=== PATIENT | female | born 1975 | race Caucasian/White ===

== ENCOUNTER 2023-02-09 04:59 | Emergency (ER) | payer SELFPAY ==
[2023-02-09 05:06] VITALS: BP 131/81; PULSE 69; RESP 16; TEMP 36.7; O2SAT 99; BMI 15.3
--- NOTE | 2023-02-09 05:14 | XR_ITS ---
The [address] [address] Patient Name: JUDE HUMPHREY MRN: [id number] date: 1975 Sex: F Assigned Patient Location: ER Current Patient Location: ED.MAIN Accession/Order Number: [id number] Exam Date: 02/09/2023 05:25 Report Date: 02/09/2023 05:57 At the request of: TENISHA WALLS Procedure: XR scapula LT EXAM: XR scapula LT HISTORY: left scapular pain, fall COMPARISON: None. TECHNIQUE: 2 views of the left scapula were obtained. FINDINGS: No acute fracture or dislocation is seen. The left humeral head is well-seated on the glenoid. The acromioclavicular and coracoclavicular distances are preserved. The imaged lungs are clear. XR/XR scapula LT IMPRESSION: 1. No acute fracture or dislocation of the left scapula is seen. If there is persistent concern, further evaluation with CT is recommended. Electronically authenticated by: Doug FORMAN Date: 02/09/2023 05:57
--- NOTE | 2023-02-09 05:15 | ED.GENADUL1 ---
HPI - General Adult General Chief complaint: Extremity Problem, Nontraumatic Stated complaint: FALL RIB PAIN Time Seen by Provider: 02/09/23 05:04 Source: patient Mode of arrival: walk-in Limitations: no limitations History of Present Illness HPI narrative: Patient fell yesterday and stated that she felt pain in the left scapular region and felt a pop . Patient works 3rd shift, went to work tonight and the pain worsened so she came to the ED at 5am to be evaluated. No meds taken since the fall for the pain. She told me that she also fell about 2 weeks ago and injured the same area. She did not seek care at that time and did not take anything for the pain, which lasted for a couple of days. No head injury, LOC, pain in the neck or the back. Related Data Home Medications Medication Instructions Recorded Confirmed estradiol 0.5 mg tablet mg 02/09/23 hydroxyzine HCl 25 mg tablet mg 02/09/23 quetiapine 50 mg tablet mg 02/09/23 Previous Rx's Medication Instructions Recorded ketorolac 10 mg tablet 10 mg PO Q8H PRN pain #14 tabs 02/09/23 Allergies Allergy/AdvReac Type Severity Reaction Status Date / Time naproxen Allergy Verified 02/09/23 05:10 [facility] Social History Smoking status: Current every day smoker Exam Narrative Exam Narrative: Nurses note and vital signs reviewed and patient is not hypoxic. afebrile General: The patient appears well and in no apparent distress. Patient is resting comfortably on cart. GCS = 15. Skin: Warm, dry, no pallor noted. Head: Normocephalic, atraumatic Neck: Supple, trachea mid-line. Full ROM and no cervical spinal tenderness. Cardiovascular: Normal peripheral perfusion Respiratory: Patient is in no distress, no accessory muscle use, lungs are clear to auscultation, no wheezing, rales or rhonchi Back: No thoracic midline vertebral tenderness to palpation. Tenderness along the left scapula. 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 Psychiatric: Cooperative Constitutional Vital Signs, click to edit/add: Last Vital Signs Temp 98.1 F 02/09/23 05:06 Pulse 69 02/09/23 05:06 Resp 16 02/09/23 05:06 BP 131/81 11/26/23 05:06 Pulse Ox 99 02/09/23 05:06 O2 Del Method Room Air 02/09/23 05:06 Course Vital Signs Vital signs: Vital Signs Temperature 98.1 F 02/09/23 05:06 Pulse Rate 69 02/09/23 05:06 Respiratory Rate 16 02/09/23 05:06 Blood Pressure 131/81 02/09/23 05:06 Pulse Oximetry 99 02/09/23 05:06 Oxygen Delivery Method Room Air 02/09/23 05:06 Temperature 98.1 F 02/09/23 05:06 Pulse Rate 69 02/09/23 05:06 Respiratory Rate 16 02/09/23 05:06 Blood Pressure 131/81 02/09/23 05:06 Pulse Oximetry 99 02/09/23 05:06 Oxygen Delivery Method Room Air 02/09/23 05:06 Medical Decision Making MDM Narrative Medical decision making narrative: The patient was given Motrin for pain and xrays of the left scapula were obtained. No acute fracture was identified. Patient was informed of results and discharged home with prescription for 5 days of Toradol. PCP follow up recommended. Imaging Data xr scapula: Radiologist's impression: Patient Name: JUDE HUMPHREY MRN: [id number] date: 1975 Sex: F Assigned Patient Location: ER Current Patient Location: ED.MAIN Accession/Order Number: [id number] Exam Date: 02/09/2023 05:25 Report Date: 02/09/2023 05:57 At the request of: TENISHA WALLS Procedure: XR scapula LT EXAM: XR scapula LT HISTORY: left scapular pain, fall COMPARISON: None. TECHNIQUE: 2 views of the left scapula were obtained. FINDINGS: No acute fracture or dislocation is seen. The left humeral head is well-seated on the glenoid. The acromioclavicular and coracoclavicular distances are preserved. The imaged lungs are clear. IMPRESSION: 1. No acute fracture or dislocation of the left scapula is seen. If there is persistent concern, further evaluation with CT is recommended. Electronically authenticated by: Doug FORMAN Date: 02/09/2023 05:57 Discharge Plan Discharge Chief Complaint: Extremity Problem, Nontraumatic Clinical Impression: Pain of left scapula, Muscle strain Patient Disposition: Home, Self-Care Time of Disposition Decision: 05:20 Prescriptions / Home Meds: New ketorolac 10 mg tablet 10 mg PO Q8H PRN (Reason: pain) Qty: 14 0RF No Action hydroxyzine HCl 25 mg tablet estradiol 0.5 mg tablet quetiapine 50 mg tablet Instructions: Back Pain (ED) Stand Alone Forms: Portal Instructions Referrals: TERI HERNANDEZ [Primary Care Provider] - 1 week
[2023-02-09] MEDS: IBUPROFEN 600 MG TABLET PO (05:46)
[2023-02-09 06:51] VITALS: BP 116/59; PULSE 63; RESP 18; O2SAT 98
== END 2023-02-09 06:52 | disposition home or self-care (01) ==
PROVIDERS: Emergency Provider Emergency Medicine; PCP Nurse Practitioner Family
DX: S46.912A Strain of unspecified muscle, fascia and tendon at shoulder and upper arm level, left arm, initial encounter (principal); M25.512 Pain in left shoulder; X50.9XXA Other and unspecified overexertion or strenuous movements or postures, initial encounter; Z79.899 Other long term (current) drug therapy; F17.210 Nicotine dependence, cigarettes, uncomplicated
CPT/HCPCS: 73010; 99283

== ENCOUNTER 2023-10-15 11:16 | Outpatient (REF) | payer OTHER, SELFPAY ==
--- OUTSIDE RECORDS SUMMARY | 2023-10-15 11:23 | XMS_ITS | CCD ---
Author Organization [facility] Care Team Providers Care Wood Getter Name Role Phone TERI BELL Primary Care Unavailable ERIC, DR NIKHIL Isaac Admitting Unavailable ERIC, DR NIKHIL Isaac Attending Unavailable ERIC, DR NIKHIL Isaac Consulting Unavailable Shena Dao Consulting Unavailable HERMELINDA, DR SHARMA Admitting Unavailable HERMELINDA, DR SHARMA Attending Unavailable ARABELLA, TERI Primary Care Unavailable HERMELINDA, DR SHARMA Consulting Unavailable HERMELINDA, DR SHARMA Admitting Unavailable HERMELINDA, DR SHARMA Attending Unavailable ARABELLA, TERI Primary Care Unavailable SAADIA, DR VALORIE Trejo Consulting Unavailable HERMELINDA, DR SHARMA Consulting Unavailable ARABELLA, TERI Admitting Unavailable ARABELLA, TERI Attending Unavailable ARABELLA, TERI Primary Care Unavailable ARABELLA, TERI Consulting Unavailable ARABELLA, TERI Admitting Unavailable ARABELLA, TERI Attending Unavailable ARABELLA, TERI Primary Care Unavailable ARABELLA, TERI Admitting Unavailable ARABELLA, TERI Attending Unavailable ARABELLA, TERI Primary Care Unavailable ARABELLA, TERI Primary Care Unavailable ARABELLA, TERI Admitting Unavailable ARABELLA, TERI Attending Unavailable MICHAEL FORMAN Consulting Unavailable VIPUL RAMESH Consulting Unavailable ARABELLA, TERI Primary Care Unavailable VIPUL RAMESH Admitting Unavailable VIPUL RAMESH Attending Unavailable SANDRO, DR SCHOFIELD Consulting Unavailable Eduardo Mchugh Consulting Unavailable Ahsan HANSEN Attending Unavailable Ahsan HANSEN Attending Unavailable Allergies Allergy Classification Reported Allergen(s) Allergy Type Date of Onset Reaction(s) Facility (2 sources) Naproxen; Translations: [naproxen] Drug Allergy 05-05-2015 [facility] Repository (2 sources) Naproxen; Translations: [Aleve] Drug Allergy 05-26-2015 [facility] Rep[facility] Problems Active Problems Problem Classification Problem Date Documented Da te Episodic/Chronic Other aftercare (1 source) Other penitentiary (current) drug therapy; Translations: [OTH USP CURRENT DRUG THERAPY] Onset: 12-11-2020 Episodic Other non-traumatic joint disorders (5 sources) Pain in right shoulder; Translations: [PAIN IN RIGHT SHOULDER] Onset: 06-13-2020 Episodic Other screening for suspected conditions (not mental disorders or infectious disease) (8 sources) Encounter for screening mammogram for malignant neoplasm of breast; Translations: [Encounter for screening for malignant neoplasm of cervix] Onset: 08-01-2020 Episodic Residual codes; unclassified (1 source) Family history of malignant neoplasm of digestive organs; Translations: [FAM HX MALIG NEOPLASM DIGESTIV ORGN] Onset: 12-27-2020 Episodic Substance-related disorders (1 source) Nicotine dependence, cigarettes, uncomplicated; Translations: [NICOTINE DEPEND CIGARETTES UNCOMP] Onset: 01-15-2021 Chronic Unclassified (2 sources) COUGH, UNSPECIFIED; Translations: [COUGH, UNSPECIFIED] Onset: 01-15-2021 Viral infection (1 source) COVID-19; Translations: [COVID-19] Onset: 01-15-2021 Past or Other Problems Problem Classification Problem Date Documented Date Episodic/Chronic E Codes: Fall (1 source) Fall (on) (from) unspecified stairs and steps, initial encounter; Translations: [FALL ON FROM UNS STAIRS STEPS INIT] Onset: 04-25-2020 Episodic Immunizations and screening for infectious disease (1 source) Encounter for screening for human papillomavirus (HPV); Translations: [ENC SCREENING HUMAN PAPILLOMAVIRUS] Onset: 08-08-2020 Episodic Other connective tissue disease (1 source) Other muscle spasm; Translations: [OTHER MUSCLE SPASM] Onset: 04-25-2020 Episodic Residual codes; unclassified (1 source) Acquired absence of both cervix and uterus; Translations: [ACQUIRED ABSENCE BOTH CERVIX AND UTERUS] Onset: 04-25-2020 Episodic Spondylosis; intervertebral disc disorders; other back problems (4 sources) Low back pain; Translations: [LOW BACK PAIN] Onset: 05-24-2020 Episodic Sprains and strains (1 source) Strain of muscle, fascia and tendon of lower back, initial encounter; Translations: [STRAIN MUSC FASC TENDON LW BACK INT] Onset: 04-25-2020 Episodic Unclassified (1 source) COUGH, UNSPECIFIED; Translations: [COUGH, UNSPECIFIED] Onset: 01-11-2021 Results Test Name Value Interpretation Reference Range Facility Registrationon 07-03-2023 Registration [id number]. [id number] Normal [facility] Covid-19 PCR (CVDTBH)on 12-16 SARS-CoV-2 (COVID-19) RNA ZAYRA+probe Ql (Unsp spec) Detected Critically abnormal NOT DETECTED [facility] Comment on above: Performed By: #### M ISC #### [facility] [address] [address] Mitesh Wade XR CHEST 1 Von 01-11-2021 XR CHEST 1 V ONE-VIEW CHEST RADIOGRAPH, 01/11/2021 8:34 PM EDT COMPARISON: Chest, 10/01/2016 CLINICAL HISTORY: COUGH, congestion and headache for 3 days. FINDINGS: No acute cardiopulmonary disease. No pulmonary edema, pneumothorax, or pleural effusion. Normal heart size. No acute osseous abnormality. IMPRESSION: No acute abnormality identified. Electronically authenticated by: Shena DAO Date: 2021-01-11 20:58 Normal [facility] MG MAMM SCREEN 3D MEGHANN CADon 12-22-2020 MG MAMM SCREEN 3D MEGHANN CAD Patient: JUDE HUMPHREY Exam Date: 12/22/2020 : 1975 Gender:F Ordering : DR EDITH SHEN . Admission #: [id number] Family : TERI HERNANDEZ [facility] Order #: [id number] CLICK HERE TO VIEW EXAM RADIOLOGY REPORT PROCEDURE: MAMMOGRAM SCREENING 3D BILATERAL CAD COMPARISON: MG MAMM SCREEN MEGHANN W CAD, 07/22/2018. MG MAMM SCREEN MEGHANN W CAD, 09/23/2019. INDICATIONS: Screening mammography Calculator Name NCI Breast Cancer Risk Assessment Tool 5 Year Breast Cancer Risk 0.50% Lifetime Breast Cancer Risk 6.50% Personal Breast Cancer No Personal Ovarian Cancer No Treatments None Family Cancers Father with larynx cancer at age 67; Grandmother-paternal with colon cancer at age 60. LOCATION: [facility] BREAST COMPOSITION: Extremely dense, which lowers the sensitivity of mammography. FINDINGS: DIAGNOSTIC CATEGORY 1--NEGATIVE NO CHANGE FROM COMPARISON ASSESSMENT. Scattered benign-appearing calcifications are present. Scattered benign-appearing lymph nodes are present. RIGHT BREAST: No significant suspicious finding. LEFT BREAST: No significant suspicious finding. RECOMMENDATIONS: ROUTINE MAMMOGRAM AND CLINICAL EVALUATION IN 12 MONTHS. PLEASE NOTE: A NORMAL MAMMOGRAM DOES NOT EXCLUDE THE POSSIBILITY OF BREAST CANCER. A CLINICALLY SUSPICIOUS PALPABLE LUMP SHOULD BE BIOPSIED. Dictated by: Valorie Blum MD on 12/25/2020 at 09:38 Approved by: Valorie Blum MD on 12/25/2020 at 09:42 Normal [facility] XR SHOULDER RT 2V or >on XR SHOULDER RT 2V or > EXAM: XR SHOULDER RT 2V or > HISTORY: The patient is a 45-year-old female with right shoulder pain after throwing injury. COMPARISON: 07/08/2018. FINDINGS: There is an ovoid calcification measuring 7 mm in length anterior to the proximal humeral diaphysis. This may represent a calcification within the biceps tendon sheath. This does not have the appearance of an acute fracture. Otherwise, the right shoulder is radiographically negative with no evidence of fracture, dislocation, or other sites of calcific tendonitis. The glenohumeral joint is maintained. The acromioclavicular joint is maintained. The subacromial space is maintained. IMPRESSION: Soft tissue calcification, perhaps within the biceps tendon sheath. Electronically authenticated by: EDUARDO MCHUGH Date: 2020-12-09 18:18 Normal [facility] PAP ACOG PANEL 2: 30 to 65on 08-07-2020 . . Normal [facility] Comment on above: Result Comment: Perf ormed at: WB Performed By: #### [id number] #### [facility] [address] [place] [address] Mitesh Wade Age Gdln ACOG Testing 30-65 Normal [facility] Comment on above: Performed By: #### [id number] #### [facility] [address] [place], [place] [address] Mitesh Wade DIAGNOSIS: Comment Normal [facility] Comment on above: Result Comment: NEGA TIVE FOR INTRAEPITHELIAL LESION OR MALIGNANCY. Performed at: WB Performed By: #### [id number] #### [facility] [address] [place] [address] Mitesh Wade HPV Aptima Positive Abnormal Negative [facility] Comment on above: Result Comment: This nucleic acid amplification test detects fourteen high-risk HPV types (16,18,31,33,35,39,45,51,52,56,58,59,66,68) without differentiation. Performed at: =G Performed By: #### [id number] #### [facility] [address] [place] [address] Mitesheduardo Wade HPV Genotype 16 Negative Normal Negative [facility] Comment on above: Result Comment: Perf ormed at: =G Performed By: #### [id number] #### [facility] [address] [place] [address] Mitesheduardo Wade HPV Genotype 18,45 Negative Normal Negative [facility] Comment on above: Result Comment: Perf ormed at: =G Performed By: #### 4 [id number] #### [facility] [address] [place] [address] Mitesh Sheri Methodology: Comment Normal [facility] Comment on above: Result Comment: This liquid based ThinPrep(R) pap test was screened with the use of an image guided system. Performed at: WB Performed By: #### 4 [id number] #### [facility] [address] [place] [address] Mitesheduardo Wade Note: Comment Normal [facility] Comment on above: Result Comment: The Pap smear is a screening test designed to aid in the detection of premalignant and malignant conditions of the uterine cervix. It is not a diagnostic procedure and should not be used as the sole means of detecting cervical cancer. Both false-positive and false-negative reports do occur. . Performed at: WB Performed By: #### [id number] #### [facility] [address] [place] [address] Mitesh Sheri Performed by: Comment Normal [facility] Comment on above: Result Comment: Bk Lopez Food Counter Worker (ASCP) Performed at: WB Performed By: #### [id number] #### [facility] [address] [place] [address] Mitesh Sheri Specimen adequacy: Comment Normal [facility] Comment on above: Result Comment: Sati sfactory for evaluation. No endocervical component is identified. Performed at: WB Performed By: #### 4 [id number] #### [facility] [address] [place], [place] [id number] Mitesheduardo Wade INSULINon 05-02-2020 Insulin 3.8 uIU/mL Normal 2.6-24.9 [facility] Comment on above: Performed By: #### M ISC #### [facility] [address] [place] [address] Mitesheduardo Wade CBC AUTO DIFFon 05-01-2020 BASO # 0.0 103/ul Normal 0.0-0.1 [facility] Comment on above: Performed By: #### C BC #### [facility] [address] [place], [place] [id number] Mitesh Wade Basophils/100 WBC (Bld) 0.3 % Normal 0.2-2.0 [facility] Comment on above: Performed By: #### C BC #### [facility] [address] [place] [address] Mitesheduardo Wade EO # 0.1 103/ul Normal 0.0-0.7 [facility] Comment on above: Performed By: #### C BC #### [facility] [address] [place] [address] Mitesh Wade Eosinophils/100 WBC (Bld) 1.3 % Normal 0.9-7.0 [facility] Comment on above: Performed By: #### C BC #### [facility] [address] [place], [place] [id number] Mitesh Wade Erythrocyte distribution width (RBC) [Ratio] 12.9 % Normal 11.0-15.0 [facility] Comment on above: Performed By: #### C BC #### [facility] [address] [place], [place] [id number] Mitesh Sheri Hematocrit (Bld) [Volume fraction] 39.6 % Normal 36.0-48.0 [facility] Comment on above: Performed By: #### C BC #### [facility] [address] [place] [address] Mitesh Sheri Hemoglobin (Bld) [Mass/Vol] 13.2 g/dL Normal 12.0-16.0 [facility] Comment on above: Performed By: #### C BC #### [facility] [address] [id number] Mitesh Sheri IG # 0.02 10e3/ul Normal 0.00-0.03 [facility] Comment on above: Performed By: #### C BC #### [facility] [address] [place], [place] [id number] Mitesh Sheri IG % 0.2 % Normal 0.0-0.5 [facility] Comment on above: Performed By: #### C BC #### [facility] [address] [place] [address] Mitesh Sheri LYMPH # 3.2 103/ul Normal 1.2-3.8 [facility] Comment on above: Performed By: #### C BC #### [facility] [address] [place] [address] Mitesh Sheri Lymphocytes/100 WBC (Bld) 37.4 % Normal 20.5-60.0 [facility] Comment on above: Performed By: #### C BC #### [facility] [address] [place], [place] [id number] Mitesh Sheri MANUAL DIFF REQ NO Normal [facility] Comment on above: Performed By: #### C BC #### [facility] [address] [place], [place] [id number] Mitesh Sheri MCH (RBC) [Entitic mass] 31.9 pg Normal 26.7-34.0 [facility] Comment on above: Performed By: #### C BC #### [facility] [address] [place] [address] Mitesh Sheri MCHC (RBC) [Mass/Vol] 33.3 g/dL Normal 29.9-35.2 [facility] Comment on above: Performed By: #### C BC #### [facility] [address] [place], [place] [id number] Mitesh Sheri MCV (RBC) [Entitic vol] 95.7 fL Normal 81.0-99.0 [facility] Comment on above: Performed By: #### C BC #### [facility] [address] [place], [place] [address] Mitesh Sheri MONO # 0.6 103/ul Normal 0.3-0.8 [facility] Comment on above: Performed By: #### C BC #### [facility] [address] [id number] Mitesh Sheri Monocytes/100 WBC (Bld) 7.3 % Normal 1.7-12.0 [facility] Comment on above: Performed By: #### C BC #### [facility] [address] [id number] Mitesh Sheri NEUT # 4.6 103/ul Normal 1.4-6.5 [facility] Comment on above: Performed By: #### C BC #### [facility] [address] [place], [place] [id number] Mitesh Sheri Neutrophils/100 WBC (Bld) 53.5 % Normal 43.0-75.0 [facility] Comment on above: Performed By: #### C BC #### [facility] [address] [place], [place] [id number] Mitesheduardo Wade Platelet mean volume (Bld) [Entitic vol] 10.8 fL Normal 9.5-13.5 [facility] Comment on above: Performed By: #### C BC #### [facility] [address] [place], [place] [address] Mitesh Sheri PLT 235 103/ul Normal 150-450 [facility] Comment on above: Performed By: #### C BC #### [facility] [address] [place], [place] [address] Mitesh Sheri RBC 4.14 106/ul Critically low 4.20-5.40 [facility] Comment on above: Performed By: #### C BC #### [facility] [address] [place], [place] [address] Mitesh Sheri WBC 8.6 103/ul Normal 4.0-11.0 [facility] Comment on above: Performed By: #### C BC #### [facility] [address] [place], [place] [id number] Mitesh Sheri GLYCOHEMOGLOBIN A1Con 2020 ADA RECOMMENDATION ADA THERAPEUTIC TARG ET 6.0 - 7.0 ACTION SUGGESTED > 7.0 Normal [facility] Comment on above: Performed By: #### M ISC #### [facility] [address] [place] [address] Mitesh Wade Glucose [Mass/Vol] 103 mg/dL Normal [facility] Comment on above: Performed By: #### M ISC #### [facility] [address] [place] [address] Mitesh Wade HbA1c (Bld) [Mass fraction] 5.2 % Normal <=6.0 [facility] Comment on above: Performed By: #### M ISC #### [facility] [address] [place] [address] Mitesh Wade IRONon 05-01-2020 Iron [Mass/Vol] 79.0 ug/dL Normal 37.0-170.0 [facility] Comment on above: Performed By: #### M ISC #### [facility] [address] [place] [address] Mitesh Wade LAB TESTINGon 05-01-2020 RECV HEADER SEE SCANNED REPORT I N HPF Normal [facility] Comment on above: Performed By: #### M ISC #### [facility] [address] [place] [address] Mitesh Wade REV FROM REF LAB 05/03/20 [facility] Comment on above: Performed By: #### M ISC #### [facility] [address] [place] [address] Mitesh Wade SENT TO REF LAB 05/01/2020 Normal [facility] Comment on above: Performed By: #### M ISC #### [facility] [address] [place], [place] [id number] Mitesheduardo Wade LIPID PROFILEon 05-01-2020 CHOL-HDL RATIO NORM SEE BELOW Normal [facility] Comment on above: Result Comment: 3.3 - 4.4 LOW RISK 4.4 - 7.1 AVERAGE RISK 7.1 - 11.0 MODERATE RISK >11.0 HIGH RISK Performed By: #### C MP, TSH, T4, LIPID #### [facility] [address] [place], [place] [address] Mitesh Sheri Cholesterol [Mass/Vol] 213 mg/dL Critically high <=200 [facility] Comment on above: Performed By: #### C MP, TSH, T4, LIPID #### [facility] [address] [place], [place] [address] Mitesh Sheri Cholesterol in HDL [Mass/Vol] 50 mg/dL Normal [facility] Comment on above: Performed By: #### C MP, TSH, T4, LIPID #### [facility] [address] [place], [place] [address] Mitesh Sheri Cholesterol in LDL [Mass/Vol] 147.2 mg/dL Normal [facility] Comment on above: Performed By: #### C MP, TSH, T4, LIPID #### [facility] [address] [place], [place] [address] Mitesh Sheri Cholesterol.total/Ch olesterol in HDL [Mass ratio] 4.3 {ratio} Normal [facility] Comment on above: Performed By: #### C MP, TSH, T4, LIPID #### [facility] [address] [place], [place] [address] Mitesh Sheri HDL NORMAL > or = 60 mg/dl - LO W CARDIOVASCULAR RISK <40 mg/dl - HIGH CARDIOVASCULAR RISK Normal [facility] Comment on above: Performed By: #### C MP, TSH, T4, LIPID #### [facility] [address] [id number] Mitesh Sheri LDL CALC NORMAL SEE BELOW Normal [facility] Comment on above: Result Comment: <100 mg/dl OPTIMAL 100 - 129 mg/dl NEAR OR ABOVE OPTIMAL 130 - 159 mg/dl BORDERLINE HIGH 160 - 189 mg/dl HIGH >190 mg/dl VERY HIGH Performed By: #### C MP, TSH, T4, LIPID #### [facility] [address] [id number] Mitesh Sheri Triglyceride [Mass/Vol] 79 mg/dL Normal <=150 [facility] Comment on above: Performed By: #### C MP, TSH, T4, LIPID #### [facility] [address] [place] [address] Mitesh Sheri VLDL CALC 15.8 mg/dL Normal [facility] Comment on above: Performed By: #### C MP, TSH, T4, LIPID #### [facility] [address] [place], [place] [id number] Mitesh Sheri PROF 14(COMP METB)on 021 Albumin [Mass/Vol] 3.7 g/dL Normal 3.5-5.0 [facility] Comment on above: Performed By: #### M ISC #### [facility] [address] [place], [place] [address] Mitesh Sheri Albumin/Globulin [Mass ratio] 1.1 {ratio} Normal [facility] Comment on above: Performed By: #### M ISC #### [facility] [address] [place], [place] [address] Mitesh Sheri ALP [Catalytic activity/Vol] 33 U/L Critically low 38-126 [facility] Comment on above: Performed By: #### M ISC #### [facility] [address] [place], [place] [address] Mitesh Sheri ALT [Catalytic activity/Vol] 21 U/L Normal 9-52 [facility] Comment on above: Performed By: #### M ISC #### [facility] [address] [place], [place] [address] Mitesh Sheri Anion gap [Moles/Vol] 14.2 mmol/L Normal [facility] Comment on above: Performed By: #### M ISC #### [facility] [address] [place], [place] [address] Mitesh Sheri AST [Catalytic activity/Vol] 24 U/L Normal 14-36 [facility] Comment on above: Performed By: #### M ISC #### [facility] [address] [place], [place] [address] Mitesh Sheri Bilirubin [Mass/Vol] 0.4 mg/dL Normal 0.2-1.3 [facility] Comment on above: Performed By: #### M ISC #### [facility] [address] [place], [place] [address] Mitesh Sheri Calcium [Mass/Vol] 9.1 mg/dL Normal 8.4-10.2 [facility] Comment on above: Performed By: #### M ISC #### [facility] [address] [place] [address] Mitesh Sheri Chloride [Moles/Vol] 100 mmol/L Normal 98-107 [facility] Comment on above: Performed By: #### M ISC #### [facility] [address] [place] [address] Mitesh Sheri CO2 [Moles/Vol] 25.6 mmol/L Normal 22.0-30.0 [facility] Comment on above: Performed By: #### M ISC #### [facility] [address] [place] [address] Mitesh Sheri Creatinine [Mass/Vol] 0.58 mg/dL Normal 0.52-1.04 [facility] Comment on above: Performed By: #### M ISC #### [facility] [address] [place] [address] Mitesh Sheri EGFR-AF KAZAKH >60 Normal >=60 [facility] Comment on above: Performed By: #### M ISC #### [facility] [address] [place] [address] Mitesh Sheri EGFR-NON AF KAZAKH >60 Normal >=60 [facility] Comment on above: Performed By: #### M ISC #### [facility] [address] [place] [address] Mitesh Sheri Globulin (S) [Mass/Vol] 3.5 g/dL Normal [facility] Comment on above: Performed By: #### M ISC #### [facility] [address] [place] [address] Mitesh Sheri Glucose [Mass/Vol] 86 mg/dL Normal 74-106 [facility] Comment on above: Performed By: #### M ISC #### [facility] [address] [place] [address] Mitesh Sheri Potassium [Moles/Vol] 3.8 mmol/L Normal 3.4-5.0 [facility] Comment on above: Performed By: #### M ISC #### [facility] [address] [id number] Mitesh Sheri Protein [Mass/Vol] 7.2 g/dL Normal 6.1-8.2 [facility] Comment on above: Performed By: #### M ISC #### [facility] [address] [id number] Mitesh Sheri Sodium [Moles/Vol] 136 mmol/L Critically low 137-145 [facility] Comment on above: Performed By: #### M ISC #### [facility] [address] [place] [address] Mitesh Sheri Urea nitrogen [Mass/Vol] 14.0 mg/dL Normal 7.0-17.0 [facility] Comment on above: Performed By: #### M ISC #### [facility] [address] [place] [address] Mitesh Sheri Urea nitrogen/Creatinine [Mass ratio] 24.1 mg/mg Normal [facility] Comment on above: Performed By: #### M ISC #### [facility] [address] [place] [address] Mitesh Sheri T4on 05-01-2020 T4 [Mass/Vol] 6.00 ug/dL Normal 5.53-11.00 [facility] Comment on above: Performed By: #### C MP, TSH, T4, LIPID #### [facility] [address] [place] [address] Mitesh Sheri TSHon 05-01-2020 TSH 1.896 uIU/mL Normal 0.470-4.680 [facility] Comment on above: Performed By: #### C MP, TSH, T4, LIPID #### [facility] [address] [id number] Mitseh Sheri TSH RANGE SEE BELOW Normal [facility] Comment on above: Result Comment: <0.3 4 UIU/ml HYPERTHYROID 0.34-5.60 UIU/ml EUTHYROID >5.60 UIU/ml HYPOTHYROID Performed By: #### C MP, TSH, T4, LIPID #### [facility] [address] [place] [address] Mitesh Sheri XR LSPINE 2_3 VIEWSon 2020 XR LSPINE 2_3 VIEWS EXAM: XR LSPINE 2_3 VIEWS HISTORY: Pain. COMPARISON: None. TECHNIQUE: Frontal and lateral views of the lumbar spine and a coned-down lateral view of the lumbosacral junction were obtained. FINDINGS: There are 5 lumbar type vertebral bodies. No acute fracture or subluxation is seen. The vertebral body heights are preserved. The vertebral elements are in anatomic alignment. The disc spaces are preserved. The sacroiliac joints are patent. There are scattered degenerative changes including endplate osteophytes and degenerative facet arthropathy. IMPRESSION: 1. No acute fracture or subluxation of the lumbar spine is seen. If there is concern for an occult injury, cross-sectional imaging is recommended. Electronically authenticated by: Doug FORMAN Date: 2020-04-23 06:10 Normal [facility] Encounters Encounter Date Encounter Type Care Provider Facility Start: 07-03-2023 End: 07-04-2023 ambulatory Ahsan HANSEN Facility:[facility] Start: 01-11-2021 End: 01-11-2021 ambulatory TERI BELL Facility:[facility] Start: 12-22-2020 End: 12-23-[address] EDITH SHEN Facility:[facility] Start: 12-15-2020 End: 01-16-2021 ambulatory TERI BELL Facility:[facility] Start: 12-09-2020 End: 12-09-2020 ambulatory TERI BELL Facility:[facility] Start: 08-01-2020 End: 08-01-[address] EDITH SHEN Facility:[facility] Start: 05-24-2020 End: 07-20-2020 ambulatory TERI BELL Facility:[facility] Start: 05-03-2020 Encounter for genera l adult medical examination without abnormal findings TERIPARISH BELL [facility] Start: 05-01-2020 End: 05-02-2020 ambulatory TERI BELL Facility:[facility] Start: 05-01-2020 End: 05-02-2020 Encounter for general adult medical examination without abnormal findings TERI BELL Facility:[facility] Start: 04-23-2020 End: 04-23-2020 ambulatory TERI BELL Facility:[facility] Payers Date Payer Category Payer Unknown [id number] 2.16.84 [id number] 1976 Unknown [id number] 2.16.84 [id number] 1976 Unknown [id number] 2.16.84 [id number] 1976 Unknown [id number] 2.16.84 [id number] 1976 Unknown [id number] 2.16.84 [id number] 1976 Unknown [id number] 2.16.84 [id number] 1976 Unknown [id number] 2.16.84 [id number] 1976 Unknown [id number] 2.16.84 [id number] 1959 Unknown [id number] Summary Purpose Family History No Family History Records FoundNo Family History Records Found Advance Directives No Advanced Directives Records FoundNo Advanced Directives Records Found Additional Source Comments INFORMATION SOURCE (unrecogn ized section and content) DATE CREATED AUTHOR 02/10/2021 [facility] DATE CREATED AUTHOR AUTHOR'S SARKIS ACHARYA 07/04/2023 [facility] FOR RECORDS PERTAINING TO PATIENTS WHO ARE OR HAVE BEEN ENROLLED IN A CHEMICAL DEPENDENCY/SUBSTANCEABUSE PROGRAM, SOME INFORMATION MAY BE OMITTED. This clinical summary was aggregated from multiple sources. Caution should be exercised in using it in the provision of clinical care. This summary normalizes information from multiple sources, and as a consequence, information in this document may materially change the coding, format and clinical context of patient data. In addition, data may be omitted in some cases. CLINICAL DECISIONS SHOULD BE BASED ON THE PRIMARY CLINICAL RECORDS. [facility] [employer] provides no warranty or guarantee of the accuracy or completeness of information in this document.
[2023-10-15 13:22] LABS: Internal Control Within Normal Limits; SARS-CoV-2 Ag POSITIVE (NEGATIVE)
== END 2023-10-15 11:17 | disposition home or self-care (01) ==
LOC: LAB 11:16
PROVIDERS: PCP Nurse Practitioner Family; Visit Provider Nurse Practitioner Family
DX: U07.1 COVID-19 (principal); B34.9 Viral infection, unspecified
CPT/HCPCS: 87811

== ENCOUNTER 2024-03-06 05:56 | Emergency (ER) | payer OTHER, SELFPAY ==
[2024-03-06 06:00] VITALS: BP 154/78; PULSE 67; TEMP 36.6; O2SAT 100; BMI 16.1
--- OUTSIDE RECORDS SUMMARY | 2024-03-06 06:02 | XMS_ITS | CCD ---
Author Organization [facility] CliniSyde Care Team Providers Care Director Of Pharmacy Name Role Phone ARABELLA, TERI Primary Care Unavailable ERIC, DR NIKHIL Isaac Admitting Unavailable ERIC, DR NIKHIL Isaac Attending Unavailable ERIC, DR NIKHIL Isaac Consulting Unavailable Shena Dao Consulting Unavailable HERMELINDA, DR SHARMA Admitting Unavailable HERMELINDA, DR SHARMA Attending Unavailable ARABELLA, TERI Primary Care Unavailable HERMELINDA, DR SHARMA Consulting Unavailable HERMELINDA, DR SHARMA Admitting Unavailable HERMELINDA, DR SHARMA Attending Unavailable ARABELLA, TERI Primary Care Unavailable DALE, DR VALORIE Trejo Consulting Unavailable HERMELINDA, DR [...] RAMESH Admitting Unavailable VIPUL RAMESH Attending Unavailable DR KANWAL JO Consulting Unavailable Eduardo Mchugh Consulting Unavailable JESSIE MOREIRA Primary Care Physician [phone] Ahsan HANSEN Attending Unavailable Ahsan HANSEN Attending Unavailable JESSIE MOREIRA Primary Care Unavailable Justin Lindquist Attending Unavailable Justin Lindquist Attending Unavailable JESSIE MOREIRA Primary Care Unavailable Allergies Allergy Classification Reported Allergen(s) Allergy Type Date of Onset Reaction(s) Facility (2 sources) Naproxen; Translations: [naproxen] Drug Allergy 6 [facility] Repository (2 sources) Naproxen; Translations: [Aleve] Drug Allergy 6 [facility] Repository (2 sources) Naproxen; Translations: [naproxen] Drug Allergy Weal (disorder) [facility] Medications Current Medications Medication Drug Class(es) Dates Sig (Normalized) Sig (Original) acetaminophen 325 mg / oxyCODONE hydrochloride 5 mg oral tablet (1 source) Opioid Agonist Start: 10-24-2023 End: 10-27-2023 Percocet 5 mg-325 mg oral tablet 1 tab(s), Oral, q6hr as needed for pain for 3 day(s), 12 tab(s), Refill(s) 0, [facility]/pharmacy #[id number], 167, cm, 10/24/23 11:35:00 EDT, Height/Length Dosing, 42.2, kg, 10/24/23 11:35:00 EDT, Weight Dosing Start Date: 10/24/23 Stop Date: 10/27/23 Status: Ordered FLUoxetine 20 mg oral capsule (1 source) Serotonin Reuptake Inhibitor Start: 08-10-2019 take 1 capsule by mouth once daily FLUoxetine 20 mg Cap 20 mg = 1 cap(s), Oral, Daily, Refills(s) 0 Start Date: 08/10/19 Status: Ordered hydrOXYzine hydrochloride 25 mg oral tablet (1 source) Antihistamine Start: 08-10-2019 take 1 tablet by mouth four times daily hydrOXYzine hydrochloride 25 mg Tab 25 mg = 1 tab(s), Oral, QID, Refills(s) 0 Start Date: 08/10/19 Status: Ordered melatonin 5 mg oral capsule (1 source) Start: 08-10-2019 take 1 capsule by mouth once daily at bedtime melatonin 5 mg oral capsule 5 mg = 1 cap(s), Oral, Once a day (at bedtime), Refills(s) 0 Start Date: 08/10/19 Status: Ordered metroNIDAZOLE 500 mg oral tablet (1 source) Nitroimidazole Antimicrobial Start: 08-10-2019 take 1 tablet by mouth three times daily MetroNIDAZOLE 500 mg Tab 500 mg = 1 tab(s), Oral, TID, Refills(s) 0 Start Date: 08/10/19 Status: Ordered oxybutynin chloride 5 mg oral tablet (1 source) Cholinergic Muscarinic Antagonist Start: 03-24-2020 take 1 tablet by mouth twice daily as needed oxybutynin 5 mg Tab 5 mg = 1 tab(s), Oral, BID, PRN for urinary discomfort, # 180 cap(s), Refills(s) 1, Pharmacy: [facility]/pharmacy #[id number], 167.6, cm, 11/30/19 7:44:00 EDT, Height/Length Dosing, 42.5, kg, 11/30/19 7:44:00 EDT, Weight Dosing Start Date: 03/24/20 Status: Ordered QUEtiapine 50 mg oral tablet (1 source) Atypical Antipsychotic Start: 08-10-2019 take 1 tablet by mouth twice daily quetiapine 50 mg oral tablet 50 mg = 1 tab(s), Oral, BID, Refills(s) 0 Start Date: 08/10/19 Status: Ordered Problems Active Problems Problem Classification Problem Date Documented Date Episodic/Chronic Genitourinary symptoms and ill-defined conditions (1 source) Incontinence 08-10-2019 Chronic Genitourinary symptoms and ill-defined conditions (6 sources) Delay when starting to pass urine; Translations: [Incomplete emptying of bladder] 08-10-2019 Episodic Mood disorders (1 source) Depressive disorder 08-10-2019 Chronic Nonspecific chest pain (1 source) Chest pain; Translations: [Chest pain, unspecified] Onset: 10-24-2023 Episodic Osteoarthritis (1 source) Arthritis 08-10-2019 Chronic Other aftercare (1 source) Other moth exterminator (current) drug therapy; Translations: [OTH LONG-TERM CURRENT DRUG THERAPY] Onset: 12-11-2020 Episodic Other [...] MALIG NEOPLASM DIGESTIV ORGN] Onset: 12-27-2020 Episodic Sexually transmitted infections (not HIV or hepatitis) (1 source) Sexually transmitted infectious disease 08-10-2019 Episodic Substance-related disorders (3 sources) Nicotine dependence, cigarettes, uncomplicated; Translations: [Drug dependence] Onset: 01-15-2021 08-10-2019 Chronic Comment on above: Added secondary to d ocumentation in Social History. Unclassified (2 sources) COUGH, UNSPECIFIED; Translations: [COUGH, UNSPECIFIED] Onset: 01-15-2021 Past or Other Problems Problem [...] COUGH, UNSPECIFIED; Translations: [COUGH, UNSPECIFIED] Onset: 01-11-2021 Viral infection (2 sources) COVID-19; Translations: [Disease caused by 2019-nCoV] Onset: 01-15-2021 Results Test Name Value Interpretation Reference Range Facility BMPOrdered By: SYSTEM SYSTEM on 10-24-2023 Anion gap [Moles/Vol] 13 mmol/L Normal 6-16 Rem isol Chem Comment on above: Performed By: #### 2 [id number] #### Garcia [facility] [address] [place] [address] Calcium [Mass/Vol] 9.3 mg/dL Normal 8.9-11.1 Remiso l Chem Comment on above: Performed By: #### 2 [id number] #### Joes [facility] [address] [place] [address] Chloride [Moles/Vol] 98 mmol/L Low 101-111 Dani [facility] Comment on above: Performed By: #### 2 [id number] #### [facility] [address] [place] [address] CO2 [Moles/Vol] 27 mmol/L Normal 21-31 Remisol C hem Comment on above: Performed By: #### 2 [id number] #### [facility] [address] [place] [address] Creatinine [Mass/Vol] 0.6 mg/dL Normal 0.5-1.3 Rem isol Chem Comment on above: Performed By: #### 2 [id number] #### [facility] [address] [place] [address] Glucose [Mass/Vol] 113 mg/dL Normal 55-199 Remiso l Chem Comment on above: Performed By: #### 2 [id number] #### [facility] [address] [place] [address] Potassium [Moles/Vol] 4.0 mmol/L Normal 3.5-5.3 Rem isol Chem Comment on above: Performed By: #### 2 [id number] #### [facility] [address] [place] [address] Sodium [Moles/Vol] 134 mmol/L Low 135-145 Remiso l Chem Comment on above: Performed By: #### 2 [id number] #### [facility] [address] [place] [address] Urea nitrogen [Mass/Vol] 15 mg/dL Normal 5-21 Remisol Chem Comment on above: Performed By: #### 2 [id number] #### [facility] [address] [place] [address] BMPon 10-24-2023 Urea nitrogen/Creatinine [Mass ratio] 25 No Units High 10-20 [facility] Comment on above: Performed By: #### 2 [id number] #### [facility] [address] [place] [address] CBC w/ Auto DiffOrdered By: SYSTEM SYSTEM on 10-24-2023 Basophils/100 WBC (Bld) 0.2 % Normal 0.0-2.0 Remisol Heme Comment on above: Performed By: #### 2 [id number] #### Jose [facility] [address] [place] [address] Basophils/Leukocytes Auto (Bld) [Pure # fraction] 0.0 E9/L Normal 0.0-0.2 Remisol Heme Comment on above: Performed By: #### 2 [id number] #### Jose [facility] [address] [place] [address] Eosinophils (Bld) [#/Vol] 0.1 E9/L Normal 0.0-0.5 Remisol Heme Comment on above: Performed By: #### 2 [id number] #### Garcia [facility] [address] [place] [address] Eosinophils/100 WBC (Bld) 1.0 % Normal 0.0-8.0 Remisol Heme Comment on above: Performed By: #### 2 [id number] #### Garcia [facility] [address] [place] [address] Erythrocyte distribution width (RBC) [Ratio] 13.6 % Normal 10.9-14.2 Remisol Heme Comment on above: Performed By: #### 2 [id number] #### Garcia [facility] [address] [place] [address] Hematocrit (Bld) [Volume fraction] 39.6 % Normal 34.0-46.0 Remisol Heme Comment on above: Performed By: #### 2 [id number] #### Garcia [facility] [address] [place] [address] Hemoglobin (Bld) [Mass/Vol] 13.7 g/dL Normal 12.0-16.0 Remisol Heme Comment on above: Performed By: #### 2 [id number] #### Garcia [facility] [address] [place] [address] Lymphocytes (Bld) [#/Vol] 1.2 E9/L Normal 1.0-4.0 Remisol Heme Comment on above: Performed By: #### 2 [id number] #### Jose [facility] [address] [place] [address] Lymphocytes/100 WBC (Bld) 11.0 % Low 14.0-50.0 Remisol Heme Comment on above: Performed By: #### 2 [id number] #### Garcia [facility] [address] [place] [address] MCH (RBC) [Entitic mass] 31.9 pg Normal 27.0-34.0 Remisol Heme Comment on above: Performed By: #### 2 [id number] #### Jose [facility] [address] [place] [address] MCHC (RBC) [Mass/Vol] 34.7 g/dL Normal 31.4-36.0 Rem isol Heme Comment on above: Performed By: #### 2 [id number] #### Garcia [facility] [address] [place] [address] MCV (RBC) [Entitic vol] 91.9 fL Normal 80.0-100.0 Remisol Heme Comment on above: Performed By: #### 2 [id number] #### [facility] [address] [place] [address] Monocytes (Bld) [#/Vol] 0.4 E9/L Normal 0.2-1.0 Remisol Heme Comment on above: Performed By: #### 2 [id number] #### [facility] [address] [place] [address] Neutrophils (Bld) [#/Vol] 9.2 E9/L High 2.0-7.5 Remisol Heme Comment on above: Performed By: #### 2 [id number] #### Garcia [facility] [address] [place] [address] Neutrophils/100 WBC (Bld) 84.3 % High 36.0-75.0 Remisol Heme Comment on above: Performed By: #### 2 [id number] #### [facility] [address] [place] [address] Platelet 290.0 E9/L Normal 150.0-500.0 Remisol Heme Comment on above: Performed By: #### 2 [id number] #### Garcia [facility] [address] [place] [address] Platelet mean volume (Bld) [Entitic vol] 9.7 fL Normal 6.4-10.8 Remisol Heme Comment on above: Performed By: #### 2 [id number] #### [facility] [address] [place] [address] RBC (Bld) [#/Vol] 4.3 E12/L Normal 4.3-5.9 Remisol Heme Comment on above: Performed By: #### 2 [id number] #### [facility] [address] [place] [address] WBC corrected for nucl RBC Auto (Bld) [#/Vol] 10.9 E9/L Normal 4.0-11.0 Remisol Heme Comment on above: Performed By: #### 2 [id number] #### [facility] [address] [place] [address] CHEMISTRYOrdered By: SYSTEM SYSTEM on 10-24-2023 Urea nitrogen/Creatinine [Mass ratio] 25 mg/mg High 10 - 20 Remisol Chem ED Clinical Summaryon 2023 ED Clinical Summary ED Clinical Summary [address] [address] ED Clinical Summary Person Information Name: JUDE HUMPHREY [facility]ella [facility] Age: 47 Years : 1975 Sex: Female Language: Azeri PCP: JESSIE MOREIRA Marital Status: Visit Id: Visit Reason: Chest pain; CP - PT GETTING OVER COVID Speciality: Acuity: 2 Enc Type: Emergency Med Service: Emergency Arrival: 10/24/2023 11:29:04 Discharge: 10/24/2023 14:01:38 LOS: 000 02:32 Checkin: 10/24/2023 11:29:04 Checkout: 10/24/2023 14:01:38 Dispo Type: Home (Routine DC) EVENTS: Event Name Event Status Request Date/Time Start Date/Time Complete Date/Time Arrive Complete 10/24/2023 11:29:04 10/24/2023 11:29:04 10/24/2023 11:29:04 Document Home Meds Request 10/24/2023 11:29:04 Triage Complete 10/24/2023 11:29:04 10/24/2023 11:35:47 10/24/2023 11:35:47 Bed Assign Complete 10/24/2023 11:32:03 10/24/2023 11:32:03 10/24/2023 11:32:03 Dr Exam Complete 10/24/2023 11:32:03 10/24/2023 11:32:18 10/24/2023 11:32:18 RN Exam Complete 10/24/2023 11:32:03 10/24/2023 11:39:51 10/24/2023 11:39:51 Registration Complete 10/24/2023 11:32:18 10/24/2023 12:03:58 10/24/2023 12:03:58 Dr Exam Complete 10/24/2023 11:33:02 10/24/2023 11:33:02 10/24/2023 11:33:02 EKG Complete 10/24/2023 11:33:47 10/24/2023 11:38:52 Pending Labs Complete 10/24/2023 11:41:49 10/24/2023 12:39:34 Lab Complete 10/24/2023 11:41:49 10/24/2023 12:32:50 X-Ray Complete 10/24/2023 11:41:49 10/24/2023 11:49:01 10/24/2023 12:17:48 Reg Complete Request 10/24/2023 12:03:58 Reg Bed Request Complete 10/24/2023 12:03:58 10/24/2023 12:03:58 10/24/2023 12:03:58 Pending Labs Complete 10/24/2023 12:08:10 10/24/2023 12:08:10 10/24/2023 12:32:50 Lab Complete 10/24/2023 12:08:10 10/24/2023 12:08:10 10/24/2023 12:32:50 Wet Read Request 10/24/2023 12:17:48 Discharge Complete 10/24/2023 13:51:35 10/24/2023 14:02:03 10/24/2023 14:02:03 Transfer Complete 10/24/2023 14:02:03 10/24/2023 14:02:03 10/24/2023 14:02:03 ADDRESS: [address] [place] [id number] PHYS DOC NOTES: MEDICAL INFORMATION: Prescriptions Given: New Medications [id number], [address], [place] [id number], [phone] acetaminophen-oxycodo ne (Percocet 5 mg-325 mg oral tablet) 1 Tablets By Mouth every 6 hours as needed as needed for pain for 3 Days. Refills: 0. Medications to Continue with No Changes Other Medications fluoxetine (FLUoxetine 20 mg Cap) 1 Capsules By Mouth every day. hydrOXYzine (hydrOXYzine hydrochloride 25 mg Tab) 1 Tablets By Mouth 4 times a day. melatonin (melatonin 5 mg oral capsule) 1 Capsules By Mouth once a day (at bedtime). metronidazole (MetroNIDAZOLE 500 mg Tab) 1 Tablets By Mouth 3 times a day. oxybutynin (oxybutynin 5 mg Tab) 1 Tablets By Mouth 2 times a day as needed for urinary discomfort. Refills: 1. quetiapine (quetiapine 50 mg oral tablet) 1 Tablets By Mouth 2 times a day. PATIENT EDUCATION INFORMATION: Instructions: COVID-19; Nonspecific Chest Pain, Adult Follow up: With: Address: When: JESSIE MOREIRA [address] [place] [phone] Business (1) In 3 days 10/27/2023 DIAGNOSIS: COVID-19; Chest pain Normal [facility] ED Note-Physicianon 10-24-19 24 ED Note-Physician ED Note-Physician Basic Information Time Seen: Chad Redd PA-C 10/24/2023 11:32 Chief Complaint Pt presents to ED with complaints CP increasing today. pt dx with COVID last friday. History of Present Illness 47-year-old female comes to the ED for evaluation of chest pain. She is currently being treated for Covid-19. Respiration started a week ago with chest congestion cough shortness of breath. She is currently on prednisone and azithromycin. Continues to have chest pain and that is her prompting ED visit today. Continues to have some intermittent chills. Cough has improved. She is an active smoker. No chronic lung disease. No PE risk factors. Review of Systems A 10 point review of systems is negative except as noted above. Medical and Surgical History: Reviewed and noted Social history: Lives at home Tobacco: Denies Physical Exam Vitals & Measurements T: 36.4 ?C(Oral) HR: 49(Monitored) RR: 19 BP: 141/78 SpO2: 99% HT: 167 cm WT: 42.2 kg BMI: 15.13 Nurses notes and vital signs reviewed and patient is not hypoxic. General: The patient appears well and in no significant distress Patient is resting comfortably on the exam bed. Skin: Warm, dry, no pallor noted. Head: Atraumatic. Neck: No JVD. Eye: Normal conjunctiva. Ears, Nose, Mouth, and Throat: Moist mucous members. Cardiovascular: Strong distal pulses. No peripheral edema. Chest wall: Respiratory: Respirations are nonlabored. Back: Normal range of motion, no CVA tenderness. Musculoskeletal: Normal ROM with no gross deformity. Gastrointestinal: Soft and nontender. Urological: Neurological: Awake and alert. No focal deficits. Follows commands. GCS 15. Psychiatric: Cooperative. Medical Decision Making Patient presents with chest pain with known COVID-19 infection. EKG shows no ischemic changes. She does have bradycardia on EKG. Heart rate has been in the 50s. She think she may have had this previously. Blood pressure is stable. Laboratory studies are reviewed and noted. Normal cardiac enzymes. No hypoxia, tachycardia or tachypnea. PERC 0. Heart score less than 3. She has an allergy to NSAIDs. She is already on prednisone. Will add a short supply of Percocet for discomfort and have her follow-up with PCP. Patient was encouraged to return to the ED if symptoms worsen or change. Assessment/Plan Chest pain (R07.9: Chest pain, unspecified) Ordered: acetaminophen-oxycodo ne, 1 tab(s), Oral, q6hr as needed for pain for 3 day(s), 12 tab(s), Refill(s) 0, [id number], 167, cm, 10/24/23 11:35:00 EDT, Height/Length Dosing, 42.2, kg, 10/24/23 11:35:00 EDT, Weight Dosing COVID-19 (U07.1: COVID-19) Orders: Basic Metabolic Panel CBC w/ Auto Diff eGFR Troponin 0 Hr. XR Chest Single View Disposition Plan Patient Discharge Condition Disposition: Discharged home Condition: Improved and stable Counseled: Patient and/or family were counseled to workup, results, treatment plan and follow-up recommendations Discharge Prescription List Prescriptions Percocet 5 mg-325 mg oral tablet, 1 tab(s), Oral, q6hr, PRN Follow-up With When Contact Information JESSIE MOREIRA In 3 days 10/27/[address]T [address] [place] [phone] [employer] (1) Additional Instructions: Patient Education COVID-19 Nonspecific Chest Pain, Adult Attestation I performed a substantive part of the MDM during the patient?s E/M visit. I personally made or approved the documented management plan and acknowledge its risk of complications. (Independent Interpretation) My (EKG/X-Ray/US/CT) interpretation as above. (Discussion) Management/test interpretation discussed with APC. This report was transcribed using voice recognition software. Every effort was made to ensure accuracy, however, inadvertently computerized order administrator mistakes may be present. Appropriate healthcare PPE was used in evaluating this patient. Problem List/Past Medical History Ongoing Arthritis Depression Drug dependency Hesitancy Incomplete bladder emptying Microhematuria Mixed incontinence Nocturia Protein in urine Smoker STD (sexually transmitted disease) Urgency of urination Historical No qualifying data Procedure/Surgical History Cystourethroscopy with dilation of urethral stricture (08/26/2019), Abdominal hysterectomy (2017), Essure.. Medications Inpatient No active inpatient medications Home FLUoxetine 20 mg Cap, 20 mg= 1 cap(s), Oral, Daily hydrOXYzine hydrochloride 25 mg Tab, 25 mg= 1 tab(s), Oral, QID melatonin 5 mg oral capsule, 5 mg= 1 cap(s), Oral, Once a day (at bedtime) MetroNIDAZOLE 500 mg Tab, 500 mg= 1 tab(s), Oral, TID oxybutynin 5 mg Tab, 5 mg= 1 tab(s), Oral, BID, PRN, 1 refills Percocet 5 mg-325 mg oral tablet, 1 tab(s), Oral, q6hr, PRN quetiapine 50 mg oral tablet, 50 mg= 1 tab(s), Oral, BID Allergies Aleve (Hives) naproxen Social History Alcohol - Denies Alcohol Use, 10/07/2019 Substance Ab (more content not included)... Normal [facility] Comment on above: Result Comment: Elec tronically Signed By: Chad Redd PA-C\.br\Date and Time Signed: 10/24/23 14:03 EDT\.br\Electronically Co-Signed By: Justin Lindquist DO\.br\Date and Time Co-Signed: 10/24/23 15:20 EDT ED Patient Summaryon 024 ED Patient Summary ED Patient Summary [place] [id number] Patient Discharge Instructions Person Information Name: JUDE HUMPHREY Age: 47 Years Arrival Date: 10/24/2023 11:29:04 Discharge Diagnosis: COVID-19; Chest pain Primary Care Physician: JESSIE MOREIRA Provider Information Primary Provider: Justin Lindquist DO Advanced Computer Repairer:Chad Redd PA-C The exam and treatment you received in the Emergency Department were for an urgent problem and are not intended as complete care. It is important that you follow up with a doctor, nurse practitioner, or physician?s librarian assistant for ongoing care. If your symptoms become worse or you do not improve as expected and you are unable to reach your usual health care provider, you should return to the Emergency Department. We are available 24 hours a day. JUDE HUMPHREY has been given the following list of patient education materials, prescriptions and follow-up instructions: Follow-up Instructions: With: Address: When: JESSIE MOREIRA [address] [place] [address] [phone] Business (1) In 3 days 10/27/2023 In the event that this physician does not participate in your insurance network, please consult with your insurance company to find a nearby participating provider. Patient Education Materials: COVID-19; Nonspecific Chest Pain, Adult A MESSAGE TO ALL PATIENTS REGARDING OPIOIDS PRESCRIPTION OPIOIDS: WHAT YOU NEED TO KNOW Prescription opioids can be used to help relieve gwzxtrlq-ad-hudtov pain and are often prescribed following a surgery or injury, or for certain health conditions. These medications can be an important part of the treatment but also come with serious risks. It is important to work with your healthcare provider to make sure you are getting the safest, most effective care. WHAT ARE THE RISKS AND SIDE EFFECTS OF OPIOID USE? Prescription opioids carry serious risks of addiction and overdose, especially with prolonged use. An opioid overdose, often marked by slowed breathing, can cause sudden . The use of prescription opioids can have a number of side effects as well, even when taken as directed: ? Tolerance?meaning you might need to take more of the medication for the same pain relief ? Physical dependence?meaning you have symptoms of withdrawal when a medication is stopped ? Increased sensitivity to pain ? Constipation ? Nausea, vomiting, and dry mouth ? Sleepiness and dizziness ? Confusion ? Depression ? Low levels of testosterone that can result in lower sex drive, energy, and strength ? Itching and sweating RISKS ARE GREATER WITH: ? History of drug misuse, substance use disorder, or overdose ? Mental health conditions (such as depression or anxiety) ? Sleep apnea ? Older age (65 years and older) ? Avoid alcohol while taking prescription opioids. Also, unless specifically advised by your health care provider, medications to avoid include: ? Benzodiazepines (such as Xanax or Valium) ? Muscle relaxants (such as Soma or Flexeril) ? Hypnotics (such as Ambien or Lunesta) ? Other prescription opioids KNOW YOUR OPTIONS Talk to your health care provider about ways to manage your pain that don?t involve prescription opioids. Some of these options may actually work better and have fewer risks and side effects. Options may include: ? Pain relievers such as acetaminophen, ibuprofen, and naproxen ? Some medication that are also used for depression or seizures ? Physical therapy and exercise ? Cognitive behavioral therapy, a psychological, goal-directed approach, in which patients learn how to modify physical, behavioral, and emotional triggers of pain and stress. IF YOU ARE PRESCRIBED OPIOIDS FOR PAIN: ? Never take opioids in greater amounts or more often than prescribed. ? Follow up with your primary health care provider. o Work together to create a plan on how to manage your pain. o Talk about ways to help manage your pain that don?t involve prescription opioids. o Talk about any and all concerns and side effects. ? Help prevent misuse and abuse o Never sell or share prescription opioids. o Never use another person?s prescription opioids. ? Store prescription opioids in a secure place and out of reach of others (this may include visitors, children, friends, and family). ? Safely dispose of unused prescription opioids: Find your community drug take-back program or your pharmacy mail-back program, or flush them down the toilet, following guidance from the Food and Drug Administration (www.fda.gov/Drugs/Re sourcesForYou). ? Visit www.cdc.gov/drugoverd ose to learn about the risks of opioids abuse and overdose. ? If you believe you may be struggling with addiction, tell your health residential child care counselor and ask for guidance or call [facility]?S National Helpline at 2-946- (more content not included)... Normal [facility] HEMATOLOGYOrdered By: SYSTEM SYSTEM on 10-24-2023 Monocytes/100 WBC (Bld) 3.5 % Low 4.0 - 14.0 % Remisol Heme Troponin 0 Hr.Ordered By: Go800 STEM SYSTEM on 10-24-2023 Troponin HS 5.00 pg/mL Low 10.10-27.10 Remisol Chem Comment on above: Interpretive Data: T he 95% CI (Confidence Interval) PPV (Positive Predictive Value) for myocardial infarction in females is 38 pg/mL, in males 51 pg/mL. The results should be used in conjunction with clinical conditions of myocardial infarction. ([place] High Sensitivity Troponin I Instructions For Use, [employer], October 2017) Result Comment: The 95% CI (Confidence Interval) PPV (Positive Predictive Value) for myocardial infarction in females is 38 pg/mL, in males 51 pg/mL. The results should be used in conjunction with clinical conditions of myocardial infarction. ([place] High Sensitivity Troponin I Instructions For Use, [employer], October 2017) Performed By: #### 1 [id number] #### [facility] [address] [place] [address] XR Chest Single Viewon 10-23 XR Chest Single View Exam Date/Time: 10/24/2023 12:17 EDT Reason for Exam: Cough Report IMPRESSION: No acute findings by portable radiography. EXAMINATION: XR Chest Single View Clinical History: Cough smoking history. Comparison: None RESULT: Hyperinflated lungs. No focal consolidation. No pleural effusion. No pneumothorax. Calcified granuloma right midlung. Normal cardiomediastinal silhouette. No acute osseous findings. Ordering Provider: Chad Redd FINAL REPORT Dictated: 10/24/2023 12:22 pm Van Morel MD. Signed (Electronic Signature): 10/24/2023 12:22 pm Signed by: Van Morel MD Transcribed by: ARACELI Technologist: ALEX Technical Comments Radiation Dose: Ka,r in mGy = . DAP = . Normal [facility] eGFROrdered By: SYSTEM SYSTE M on 10-24-2023 eGFR 111 mL/min/1.73 m2 Normal >=59 Remiso l Chem Comment on above: Order Comment: Order added by Discern Expert. Performed By: #### 1 [id number] #### [facility] [address] [place] [address] Registrationon 07-03-2023 Registration [id number] 1.00TIFF Normal [facility] Covid-19 PCR (CVDTBH)on 12-16 SARS-CoV-2 (COVID-19) RNA ZAYRA+probe Ql (Unsp spec) Detected Critically abnormal NOT DETECTED [facility] Comment on above: Performed By: #### M ISC #### [facility] [address] [id number] Mitesh Wade XR CHEST 1 Von 01-11-2021 [...] Shena DAO Date: 2021-01-11 20:58 Normal [facility] MAMM SCREEN 3D MEGHANN CADon 12-22-2020 MG MAMM SCREEN 3D MEGHANN CAD Patient: JUDE HUMPHREY Exam Date: 12/22/2020 : 1975 Gender:F Ordering : DR EDITH SHEN . Admission #: [id number] Family : TERI HERNANDEZ [facility] Order #: [id number] CLICK HERE TO VIEW EXAM RADIOLOGY REPORT [...] colon cancer at age 61. LOCATION: [facility] BREAST COMPOSITION: Extremely dense, which lowers [...] Blum MD on 12/25/2020 at 09:42 Normal [facility] XR SHOULDER RT 2V or >on XR [...] by: EDUARDO MCHUGH Date: 2020-12-09 18:18 Normal [facility] PAP ACOG PANEL 2: 30 to 65on 08-07-2020 . . Normal [facility] Comment on above: Result Comment: Perf ormed at: WB Performed By: #### [id number] #### [facility] [address] [address] Mitesh Wade Age Gdln ACOG Testing 30-65 Normal [place] Comment on above: Performed By: #### 4 [id number] #### [facility] [address] [place] [address] Mitesheduardo Wade DIAGNOSIS: Comment Normal [place] Comment on above: Result Comment: NEGA TIVE FOR INTRAEPITHELIAL LESION OR MALIGNANCY. Performed at: WB Performed By: #### 4 [id number] #### [facility] [address] [place] [address] Mitesh Wade HPV Aptima Positive Abnormal Negative [place] Comment on above: Result Comment: This nucleic acid amplification test detects fourteen high-risk HPV types (16,18,31,33,35,39,45,51,52,56,58,59,66,68) without differentiation. Performed at: =G Performed By: #### 4 [id number] #### [facility] [address] [address] Mitesh Wade HPV Genotype 16 Negative Normal Negative [facility] Comment on above: Result Comment: Perf ormed at: =G Performed By: #### 4 [id number] #### [facility] [address] [place] [address] Mitesh Wade HPV Genotype 18,45 Negative Normal Negative [facility] Comment on above: Result Comment: Perf ormed at: =G Performed By: #### 4 [id number] #### [facility] [address] [place] [address] Mitesh Wdae Methodology: Comment Normal [place] Comment on above: Result Comment: This liquid based ThinPrep(R) pap test was screened with the use of an image guided system. Performed at: WB Performed By: #### 4 [id number] #### [facility] [address] [place] [address] Mitesh Wade Note: Comment Normal [place] Comment on above: Result Comment: The Pap smear is a screening test designed to aid in the detection of premalignant and malignant conditions of the uterine cervix. It is not a diagnostic procedure and should not be used as the sole means of detecting cervical cancer. Both false-positive and false-negative reports do occur. . Performed at: WB Performed By: #### 4 [id number] #### [facility] [address] [place], [place] [address] Mitesh Sheri Performed by: Comment Normal [facility] Comment on above: Result Comment: Bk Lopez, Cotton Farmer (ASCP) Performed at: WB Performed By: #### 4 [id number] #### [facility] [address] [place], [place] [address] Mitesh Sheri Specimen adequacy: Comment Normal [facility] Comment on above: Result Comment: Sati sfactory for evaluation. No endocervical component is identified. Performed at: WB Performed By: #### 4 [id number] #### [facility] [address] [place] [address] Mitesh Sheri INSULINon 05-02-2020 Insulin 3.8 uIU/mL Normal 2.6-24.9 [place] Comment on above: Performed By: #### M ISC #### [facility] [address] [place], [place] [address] Mitesh Sheri CBC AUTO DIFFon 05-01-2020 BASO # 0.0 103/ul Normal 0.0-0.1 [place] Comment on above: Performed By: #### C BC #### [facility] [address] [place], [place] [address] Mitesh Sheri Basophils/100 WBC (Bld) 0.3 % Normal 0.2-2.0 [place] Comment on above: Performed By: #### C BC #### [facility] [address] [place], [place] [address] Mitesh Sheri EO # 0.1 103/ul Normal 0.0-0.7 [place] Comment on above: Performed By: #### C BC #### [facility] [address] [place], [place] [address] Mitesh Sheri Eosinophils/100 WBC (Bld) 1.3 % Normal 0.9-7.0 [place] Comment on above: Performed By: #### C BC #### [facility] [address] [address] Mitesh Sheri Erythrocyte distribution width (RBC) [Ratio] 12.9 % Normal 11.0-15.0 [place] Comment on above: Performed By: #### C BC #### [facility] [address] [place] [address] Mitesh Sheri Hematocrit (Bld) [Volume fraction] 39.6 % Normal 36.0-48.0 [place] Comment on above: Performed By: #### C BC #### [facility] [address] [place] [address] Mitesh Sheri Hemoglobin (Bld) [Mass/Vol] 13.2 g/dL Normal 12.0-16.0 [place] Comment on above: Performed By: #### C BC #### [facility] [address] [place] [address] Mitesh Sheri IG # 0.02 10e3/ul Normal 0.00-0.03 [place] Comment on above: Performed By: #### C BC #### [facility] [address] [place] [address] Mitesh Sheri IG % 0.2 % Normal 0.0-0.5 [place] Comment on above: Performed By: #### C BC #### [facility] [address] [place] [address] Mitesh Sheri LYMPH # 3.2 103/ul Normal 1.2-3.8 [place] Comment on above: Performed By: #### C BC #### [facility] [address] [place] [address] Mitesh Sheri Lymphocytes/100 WBC (Bld) 37.4 % Normal 20.5-60.0 [place] Comment on above: Performed By: #### C BC #### [facility] [address] [place] [address] Mitesh Sheri MANUAL DIFF REQ NO Normal [facility] Comment on above: Performed By: #### C BC #### [facility] [address] [id number] Mitesh Wade MCH (RBC) [Entitic mass] 31.9 pg Normal 26.7-34.0 [facility] Comment on above: Performed By: #### C BC #### [facility] [address] [place], [place] [address] Mitesh Wade MCHC (RBC) [Mass/Vol] 33.3 g/dL Normal 29.9-35.2 [facility] Comment on above: Performed By: #### C BC #### [facility] [address] [place], [place] [address] Mitesheduardo Wade MCV (RBC) [Entitic vol] 95.7 fL Normal 81.0-99.0 [facility] Comment on above: Performed By: #### C BC #### [facility] [address] [place] [address] Mitesh Wade MONO # 0.6 103/ul Normal 0.3-0.8 [facility] Comment on above: Performed By: #### C BC #### [facility] [address] [place], [place] [address] Mitesh Wade Monocytes/100 WBC (Bld) 7.3 % Normal 1.7-12.0 [facility] Comment on above: Performed By: #### C BC #### [facility] [address] [place] [address] Mitesh Wade NEUT # 4.6 103/ul Normal 1.4-6.5 [facility] Comment on above: Performed By: #### C BC #### [facility] [address] [place], [place] [address] Mitesh Sheri Neutrophils/100 WBC (Bld) 53.5 % Normal 43.0-75.0 [facility] Comment on above: Performed By: #### C BC #### [facility] [address] [place], [place] [address] Mitseheduardo Wade Platelet mean volume (Bld) [Entitic vol] 10.8 fL Normal 9.5-13.5 [facility] Comment on above: Performed By: #### C BC #### [facility] [address] [place], [place] [address] Mitesh Wade PLT 235 103/ul Normal 150-450 [facility] Comment on above: Performed By: #### C BC #### [facility] [address] [place], [place] [address] Mitesh Wade RBC 4.14 106/ul Critically low 4.20-5.40 [facility] Comment on above: Performed By: #### C BC #### [facility] [address] [place], [place] [address] Mitesh Wade WBC 8.6 103/ul Normal 4.0-11.0 [place] Comment on above: Performed By: #### C BC #### [facility] [address] [place], [place] [address] Mitesh Wade GLYCOHEMOGLOBIN A1Con 2020 ADA RECOMMENDATION ADA THERAPEUTIC TARGET 6.0 - 7.0 ACTION SUGGESTED > 7.0 Normal [place] Comment on above: Performed By: #### M ISC #### [facility] [address] [place] [address] Mitesh Wade Glucose [Mass/Vol] 103 mg/dL Normal [facility] Comment on above: Performed By: #### M ISC #### [facility] [address] [place], [place] [address] Mitesheduardo Wade HbA1c (Bld) [Mass fraction] 5.2 % Normal <=6.0 [place] Comment on above: Performed By: #### M ISC #### [facility] [address] [place], [place] [address] Mitesh Wade IRONon 05-01-2020 Iron [Mass/Vol] 79.0 ug/dL Normal 37.0-170.0 [facility] Comment on above: Performed By: #### M ISC #### [facility] [address] [place], [place] [address] Mitesheduardo Wade LAB TESTINGon 05-01-2020 RECV HEADER SEE SCANNED REPORT I N HPF Normal [place] Comment on above: Performed By: #### M ISC #### [facility] [address] [place], [place] [address] Mitesh Sheri REV FROM REF LAB 05/03/20 Normal [facility] Comment on above: Performed By: #### M ISC #### [facility] [address], [place] [address] Mitesh Wade SENT TO REF LAB 05/01/2020 [facility] Comment on above: Performed By: #### M ISC #### [facility] [address], [place] [address] Mitesheduardo Wade LIPID PROFILEon 05-01-2020 CHOL-HDL RATIO NORM SEE BELOW Normal [facility] Comment on above: Result Comment: 3.3 - 4.4 LOW RISK 4.4 - 7.1 AVERAGE RISK 7.1 - 11.0 MODERATE RISK >11.0 HIGH RISK Performed By: #### C MP, TSH, T4, LIPID #### [facility] [address], [place] [address] Mitesh Sheri Cholesterol [Mass/Vol] 213 mg/dL Critically high <=200 [place] Comment on above: Performed By: #### C MP, TSH, T4, LIPID #### [facility] [address], [place] [address] Mitesh Sheri Cholesterol in HDL [Mass/Vol] 50 mg/dL Normal [place] Comment on above: Performed By: #### C MP, TSH, T4, LIPID #### [facility] [address], [place] [address] Mitesh Sheri Cholesterol in LDL [Mass/Vol] 147.2 mg/dL Normal [place] Comment on above: Performed By: #### C MP, TSH, T4, LIPID #### [facility] [address], [place] [address] Mitesh Sheri Cholesterol.total/Cho lesterol in HDL [Mass ratio] 4.3 {ratio} Normal [place] Comment on above: Performed By: #### C MP, TSH, T4, LIPID #### [facility] [address], [place] [address] Mitesh Sheri HDL NORMAL > or = 60 mg/dl - LO W CARDIOVASCULAR RISK <40 mg/dl - HIGH CARDIOVASCULAR RISK Normal [place] Comment on above: Performed By: #### C MP, TSH, T4, LIPID #### [facility] [address] [address] Mitesh Sehri LDL CALC NORMAL SEE BELOW Normal [facility] Comment on above: Result Comment: <100 mg/dl OPTIMAL 100 - 129 mg/dl NEAR OR ABOVE OPTIMAL 130 - 159 mg/dl BORDERLINE HIGH 160 - 189 mg/dl HIGH >190 mg/dl VERY HIGH Performed By: #### C MP, TSH, T4, LIPID #### [facility] [address] [address] Mitesh Sheri Triglyceride [Mass/Vol] 79 mg/dL Normal <=150 [facility] Comment on above: Performed By: #### C MP, TSH, T4, LIPID #### [facility] [address] [address] Mitesh Sheri VLDL CALC 15.8 mg/dL Normal [facility] Comment on above: Performed By: #### C MP, TSH, T4, LIPID #### [facility] [address] [address] Mitesheduardo Wade PROF 14(COMP METB)on 021 Albumin [Mass/Vol] 3.7 g/dL Normal 3.5-5.0 [facility] Comment on above: Performed By: #### M ISC #### [facility] [address] [place], [place] [address] Mitesh Sheri Albumin/Globulin [Mass ratio] 1.1 {ratio} Normal [place] Comment on above: Performed By: #### M ISC #### [facility] [address] [place] [address] Mitesh Sheri ALP [Catalytic activity/Vol] 33 U/L Critically low 38-126 [facility] Comment on above: Performed By: #### M ISC #### [facility] [address] [place], [place] [address] Mitesh Sheri ALT [Catalytic activity/Vol] 21 U/L Normal 9-52 [place] Comment on above: Performed By: #### M ISC #### [facility] [address] [place], [place] [address] Mitesh Sheri Anion gap [Moles/Vol] 14.2 mmol/L Normal [facility] Comment on above: Performed By: #### M ISC #### [facility] [address] [place] [address] Mitesh Sheri AST [Catalytic activity/Vol] 24 U/L Normal 14-36 [place] Comment on above: Performed By: #### M ISC #### [facility] [address] [address] Mitesh Sheri Bilirubin [Mass/Vol] 0.4 mg/dL Normal 0.2-1.3 [place] Comment on above: Performed By: #### M ISC #### [facility] [address] [place] [address] Mitesh Sheri Calcium [Mass/Vol] 9.1 mg/dL Normal 8.4-10.2 [facility] Comment on above: Performed By: #### M ISC #### [facility] [address] [place] [address] Mitesh Sheri Chloride [Moles/Vol] 100 mmol/L Normal 98-107 [place] Comment on above: Performed By: #### M ISC #### [facility] [address] [place] [address] Mitesh Sheri CO2 [Moles/Vol] 25.6 mmol/L Normal 22.0-30.0 [facility] Comment on above: Performed By: #### M ISC #### [facility] [address] [place] [address] Mitesh Sheri Creatinine [Mass/Vol] 0.58 mg/dL Normal 0.52-1.04 [place] Comment on above: Performed By: #### M ISC #### [facility] [address] [place], [place] [address] Mitesh Sheri EGFR-AF MALAYSIAN >60 Normal >=60 [facility] Comment on above: Performed By: #### M ISC #### [facility] [address] [place] [address] Mitesh Sheri EGFR-NON AF MALAYSIAN >60 Normal >=60 [facility] Comment on above: Performed By: #### M ISC #### [facility] [address], [place] [address] Mitesh Sheri Globulin (S) [Mass/Vol] 3.5 g/dL Normal [place] Comment on above: Performed By: #### M ISC #### [facility] [address], [place] [address] Mitesh Sheri Glucose [Mass/Vol] 86 mg/dL Normal 74-106 [facility] Comment on above: Performed By: #### M ISC #### [facility] [address] [id number] Mitesh Sheri Potassium [Moles/Vol] 3.8 mmol/L Normal 3.4-5.0 [place] Comment on above: Performed By: #### M ISC #### [facility] [address] [place], [place] [address] Mitesh Sheri Protein [Mass/Vol] 7.2 g/dL Normal 6.1-8.2 [facility] Comment on above: Performed By: #### M ISC #### [facility] [address] [place], [place] [address] Mitesh Sheri Sodium [Moles/Vol] 136 mmol/L Critically low 137-145 [facility] Comment on above: Performed By: #### M ISC #### [facility] [address] [place], [place] [address] Mitesh Sheri Urea nitrogen [Mass/Vol] 14.0 mg/dL Normal 7.0-17.0 [place] Comment on above: Performed By: #### M ISC #### [facility] [address] [place], [place] [address] Mitesh Sheri Urea nitrogen/Creatinine [Mass ratio] 24.1 mg/mg Normal [place] Comment on above: Performed By: #### M ISC #### [facility] [address] [place] [address] Mitesh Sheri T4on 05-01-2020 T4 [Mass/Vol] 6.00 ug/dL Normal 5.53-11.00 [facility] Comment on above: Performed By: #### C MP, TSH, T4, LIPID #### [facility] [address] [place], [place] [address] Mitesh Wade TSHon 05-01-2020 TSH 1.896 uIU/mL Normal 0.470-4.680 [facility] Comment on above: Performed By: #### C MP, TSH, T4, LIPID #### [facility] [address] [address] Mitesh Sheri TSH RANGE SEE BELOW Normal [place] Comment on above: Result Comment: <0.3 4 UIU/ml HYPERTHYROID 0.34-5.60 UIU/ml EUTHYROID >5.60 UIU/ml HYPOTHYROID Performed By: #### C MP, TSH, T4, LIPID #### [facility] [address] [id number] Mitesh Wade XR LSPINE 2_3 VIEWSon 2020 XR LSPINE [...] by: Doug FORMAN Date: 2020-04-23 06:10 Normal [place] Vital Signs Date Time Vital Sign Value Performing Clinician Lupis de la cruz 10-24-2023 13:53-0400 Diastolic blood pressure 78 mm[Hg] Justin Lindquist [facility] 10-24-2023 13:53-0400 Heart rate 49 /min Justin Lindquist [facility] 10-24-2023 13:53-0400 Mean blood pressure 99 mm[Hg] Justin Lindquist [facility] 10-24-2023 13:53-0400 Respiratory rate 19 /min Justin Lexa [facility] 10-24-2023 13:53-0400 SaO2% (BldA) [Mass fraction] 99 % Justin Lexa [facility] 10-24-2023 13:53-0400 Systolic blood pressure 141 mm[Hg] Justin Lexa [facility] 10-24-2023 13:34-0400 Diastolic blood pressure 83 mm[Hg] Justin Lexa [facility] 10-24-2023 13:34-0400 Heart rate 42 /min Justin Lexa [facility] 10-24-2023 13:34-0400 Mean blood pressure 107 mm[Hg] Justin Lexa [facility] 10-24-2023 13:34-0400 Respiratory rate 19 /min Justin Lexa [facility] 10-24-2023 13:34-0400 SaO2% (BldA) [Mass fraction] 99 % Justin Lexa [facility] 10-24-2023 13:34-0400 Systolic blood pressure 155 mm[Hg] Justin Lexa [facility] 10-24-2023 12:30-0400 Diastolic blood pressure 94 mm[Hg] Justin Lexa [facility] 10-24-2023 12:30-0400 Heart rate 45 /min Justin Lexa [facility] 10-24-2023 12:30-0400 Hourly Rounding Justin Lexa [facility] 10-24-2023 12:30-0400 Mean blood pressure 112 mm[Hg] Justin Lexa [facility] 10-24-2023 12:30-0400 Promise to Return Justin Lindquist [facility] 10-24-2023 12:30-0400 Respiratory rate 12 /min Justin Lindquist [facility] 10-24-2023 12:30-0400 SaO2% (BldA) [Mass fraction] 97 % Justin Lindquist [facility] 10-24-2023 12:30-0400 Systolic blood pressure 147 mm[Hg] Justin Lindquist [facility] 10-24-2023 11:33-0400 Body temperature 97.52 [degF] Justin Lindquist [facility] 10-24-2023 11:33-0400 Heart rate 52 /min Justin Lindquist [facility] 10-24-2023 11:33-0400 Respiratory rate 18 /min Justin Lindquist [facility] Encounters Encounter Date Encounter Type Care Provider Facility Start: 10-24-2023 End: 10-24-2023 Emergency department patient visit Justin Lindquist [facility] Start: 07-03-2023 End: 07-03-2023 ambulatory Ahsan HANSEN Facility:[facility] Start: 01-11-2021 End: 01-11-2021 ambulatory TERI BELL Facility:[facility] Start: 12-22-2020 End: 12-23-[address] EDITH SHEN Facility:[facility] Start: 12-15-2020 End: 01-16-2021 ambulatory TERI BELL Facility:[facility] Start: 12-09-2020 End: 12-09-2020 ambulatory TERI BELL Facility:[facility] Start: 08-01-2020 End: 08-01-[address] EDITH SHEN Facility:[facility] Start: 05-24-2020 End: 07-20-2020 ambulatory TERI BELL Facility:[facility] Start: 05-03-2020 Encounter for genera l adult medical examination without abnormal findings TERI BELL [place] Start: 05-01-2020 End: 05-02-2020 ambulatory TERI BELL Facility:[facility] Start: 05-01-2020 End: 05-02-2020 Encounter for general adult medical examination without abnormal findings TERI BELL Facility:[facility] Start: 04-23-2020 End: 04-23-2020 ambulatory TERI BELL Facility:[facility] Procedures Date Procedure Procedure Detail Performing Clinician Start: 08-26-2019 Cystourethroscopy wi th dilation of urethral stricture Justin Lindquist Start: 03-17-2016 Abdominal hysterectomy Justin Lindquist Transcervical sterilization Justin Lexa Payers Date Payer Category Payer Unknown [id number] 1975 Unknown [id number] 2.16.84 [id number] 1975 Unknown [id number] 2.16.84 [id number] 1975 Unknown [id number] 2.16.84 [id number] 1975 Unknown [id number] 2.16.84 [id number] 1975 Unknown [id number] 2.16.84 [id number] 1975 Unknown [id number] 2.16.84 [id number] 1975 Unknown [id number] 2.16.84 [id number] 1975 Unknown [id number] 2.16.84 [id number] 1975 Unknown [id number] 2.16.8 [id number] 1975 Unknown [id number] 2.16.8 [id number] 1958 Unknown [id number] Social History Date Type Detail Facility Start: 08-10-2019 Tobacco smoking status Heavy t obacco smoker (finding) [facility] Tobacco smoking status Never [facility] Sex Assigned At Female [facility] Functional Status Date Assessment Result Facility 10-24-2023 Functional Status N/A [facility] Discharge instructions 10-24-2023 Note Date & Type Note Facility 10-24-2023 Hospital Discharge instructions Patient Education 10/24/2023 14:02:03 COVID-19 COVID-19 COVID-19, or coronavirus disease 2019, is an infection that is caused by a new (novel) coronavirus called SARS-CoV-2. COVID-19 can cause many symptoms. In some people, the virus may not cause any symptoms. In others, it may cause mild or severe symptoms. Some people with severe infection develop severe disease. What are the causes? This illness is caused by a virus. The virus may be in the air as tiny specks of fluid (aerosols) or droplets, or it may be on surfaces. You may catch the virus by: Breathing in droplets from an infected person. Droplets can be spread by a person breathing, speaking, singing, coughing, or sneezing. Touching something, like a table or a doorknob, that has virus on it (is contaminated) and then touching your mouth, nose, or eyes. What increases the risk? Risk for infection: You are more likely to get infected with the COVID-19 virus if: You are within 6 ft (1.8 m) of a person with COVID-19 for 15 minutes or longer. You are providing care for a person who is infected with COVID-19. You are in close personal contact with other people. Close personal contact includes hugging, kissing, or sharing eating or drinking utensils. Risk for serious illness caused by COVID-19: You are more likely to get seriously ill from the COVID-19 virus if: You have cancer. You have a long-term (chronic) disease, such as: ?Chronic lung disease. This includes pulmonary embolism, chronic obstructive pulmonary disease, and cystic fibrosis. ?Long-term disease that lowers your body's ability to fight infection (immunocompromise). ?Serious cardiac conditions, such as heart failure, coronary artery disease, or cardiomyopathy. ?Diabetes. ?Chronic kidney disease. ?Liver diseases. These include cirrhosis, nonalcoholic fatty liver disease, alcoholic liver disease, or autoimmune hepatitis. You have obesity. You are or were recently . You have sickle cell disease. What are the signs or symptoms? Symptoms of this condition can range from mild to severe. Symptoms may appear any time from 2 to 14 days after being exposed to the virus. They include: Fever or chills. Shortness of breath or trouble breathing. Feeling tired or very tired. Headaches, body aches, or muscle aches. Runny or stuffy nose, sneezing, coughing, or sore throat. New loss of taste or smell. This is rare. Some people may also have stomach problems, such as nausea, vomiting, or diarrhea. Other people may not have any symptoms of COVID-19. How is this diagnosed? This condition may be diagnosed by testing samples to check for the COVID-19 virus. The most common tests are the PCR test and the antigen test. Tests may be done in the lab or at home. They include: Using a swab to take a sample of fluid from the back of your nose and throat (nasopharyngeal fluid), from your nose, or from your throat. Testing a sample of saliva from your mouth. Testing a sample of coughed-up mucus from your lungs (sputum). How is this treated? Treatment for COVID-19 infection depends on the severity of the condition. Mild symptoms can be managed at home with rest, fluids, and ivvy-zqs-owvdxvk medicines. Serious symptoms may be treated in a hospital intensive care unit (ICU). Treatment in the ICU may include: ?Supplemental oxygen. Extra oxygen is given through a tube in the nose, a face mask, or a jensen. ?Medicines. These may include: ?Antivirals, such as monoclonal antibodies. These help your body fight off certain viruses that can cause disease. ?Anti-inflammatories, such as corticosteroids. These reduce inflammation and suppress the immune system. ?Antithrombotics. These prevent or treat blood clots, if they develop. ?Convalescent plasma. This helps boost your immune system, if you have an underlying immunosuppressive condition or are getting immunosuppressive treatments. ?Prone positioning. This means you will lie on your stomach. This helps oxygen to get into your lungs. ?Infection control measures. If you are at risk for more serious illness caused by COVID-19, your health care provider may prescribe two long-acting monoclonal antibodies, given together every 6 months. How is this prevented? To protect yourself: Use preventive medicine (pre-exposure prophylaxis). You may get pre-exposure prophylaxis if you have moderate or severe immunocompromise. Get vaccinated. Anyone 6 months old or older who meets guidelines can get a COVID-19 vaccine or vaccine series. This includes people who are or making breast milk (lactating). Get an added dose of COVID-19 vaccine after your first vaccine or vaccine series if you have moderate to severe immunocompromise. This applies if you have had a solid organ transplant or have been diagnosed with an immunocompromising condition. ?You should get the added dose 4 weeks after you got the first COVID-19 vaccine or vaccine series. ?If you get an mRNA vaccine, you will need a 3-dose primary series. ?If you get the J&J/Tyler vaccine, you will need a 2-dose primary series, with the second dose being an mRNA vaccine. Talk to your health care provider about getting experimental monoclonal antibodies. This treatment is approved under emergency use authorization to prevent severe illness before or after being exposed to the COVID-19 virus. You may be given monoclonal antibodies if: ?You have moderate or severe immunocompromise. This includes treatments that lower your immune response. People with immunocompromise may not develop protection against COVID-19 when they are vaccinated. ?You cannot be vaccinated. You may not get a vaccine if you have a severe allergic reaction to the vaccine or its components. ?You are not fully vaccinated. ?You are in a facility where COVID-19 is present and: ?Are in close contact with a person who is infected with the COVID-19 virus. ?Are at high risk of being exposed to the COVID-19 virus. ?You are at risk of illness from new variants of the COVID-19 virus. To protect others: If you have symptoms of COVID-19, take steps to prevent the virus from spreading to others. Stay home. Leave your house only to get medical care. Do not use public transit, if possible. Do not travel while you are sick. Wash your hands often with soap and water for at least 20 seconds. If soap and water are not available, use alcohol-based hand staker surveying. Make sure that all people in your household wash their hands well and often. Cough or sneeze into a tissue or your sleeve or elbow. Do not cough or sneeze into your hand or into the air. Where to find more information Centers for Disease Control and Prevention: www.cdc.gov/coronavirus World Health Organization: www.who.int/health-topics/coronavi mary kay Get help right away if: You have trouble breathing. You have pain or pressure in your chest. You are confused. You have bluish lips and fingernails. You have trouble waking from sleep. You have symptoms that get worse. These symptoms may be an emergency. Get help right away. Call 911. Do not wait to see if the symptoms will go away. Do not drive yourself to the hospital. Summary COVID-19 is an infection that is caused by a new coronavirus. Sometimes, there are no symptoms. Other times, symptoms range from mild to severe. Some people with a severe COVID-19 infection develop severe disease. The virus that causes COVID-19 can spread from person to person through droplets or aerosols from breathing, speaking, singing, coughing, or sneezing. Mild symptoms of COVID-19 can be managed at home with rest, fluids, and ggww-fko-rhoiqkv medicines. This information is not intended to replace advice given to you by your health care provider. Make sure you discuss any questions you have with your health care provider. Document Revised: 02/21/2022 Document Reviewed: 02/21/2022 [employer] Patient Education 2022 [employer]. 10/24/2023 14:02:03 Nonspecific Chest Pain, Adult Nonspecific Chest Pain, Adult Chest pain is an uncomfortable, tight, or painful feeling in the chest. The pain can feel like a crushing, aching, or squeezing pressure. A person can feel a burning or tingling sensation. Chest pain can also be felt in your back, neck, jaw, shoulder, or arm. This pain can be worse when you move, sneeze, or take a deep breath. Chest pain can be caused by a condition that is life-threatening. This must be treated right away. It can also be caused by something that is not life-threatening. If you have chest pain, it can be hard to know the difference, so it is important to get help right away to make sure that you do not have a serious condition. Some life-threatening causes of chest pain include: Heart attack. A tear in the body's main blood vessel (aortic dissection). Inflammation around your heart (pericarditis). A problem in the lungs, such as a blood clot (pulmonary embolism) or a collapsed lung (pneumothorax). Some non life-threatening causes of chest pain include: Heartburn. Anxiety or stress. Damage to the bones, muscles, and cartilage that make up your chest wall. Pneumonia or bronchitis. Shingles infection (varicella-zoster virus). Your chest pain may come and go. It may also be constant. Your health care provider will do tests and other studies to find the cause of your pain. Treatment will depend on the cause of your chest pain. Follow these instructions at home: Medicines Take uxbi-jfj-pygrkqd and prescription medicines only as told by your health care provider. If you were prescribed an antibiotic medicine, take it as told by your health care provider. Do not stop taking the antibiotic even if you start to feel better. Activity Avoid any activities that cause chest pain. Do not lift anything that is heavier than 10 lb (4.5 kg), or the limit that you are told, until your health care provider says that it is safe. Rest as directed by your health care provider. Return to your normal activities only as told by your health care provider. Ask your health care provider what activities are safe for you. Lifestyle Do not use any products that contain nicotine or tobacco, such as cigarettes, e-cigarettes, and chewing tobacco. If you need help quitting, ask your health care provider. Do not drink alcohol. Make healthy lifestyle changes as recommended. These may include: ?Getting regular exercise. Ask your health care provider to suggest some exercises that are safe for you. ?Eating a heart-healthy diet. This includes plenty of fresh fruits and vegetables, whole grains, low-fat (lean) protein, and low-fat dairy products. A dietitian can help you find healthy eating options. ?Maintaining a healthy weight. ?Managing any other health conditions you may have, such as high blood pressure (hypertension) or diabetes. ?Reducing stress, such as with yoga or relaxation techniques. General instructions Pay attention to any changes in your symptoms. It is up to you to get the results of any tests that were done. Ask your health care provider, or the department that is doing the tests, when your results will be ready. Keep all follow-up visits as told by your health care provider. This is important. You may be asked to go for further testing if your chest pain does not go away. Contact a health care provider if: Your chest pain does not go away. You feel depressed. You have a fever. You notice changes in your symptoms or develop new symptoms. Get help right away if: Your chest pain gets worse. You have a cough that gets worse, or you cough up blood. You have severe pain in your abdomen. You faint. You have sudden, unexplained chest discomfort. You have sudden, unexplained discomfort in your arms, back, neck, or jaw. You have shortness of breath at any time. You suddenly start to sweat, or your skin gets clammy. You feel nausea or you vomit. You suddenly feel lightheaded or dizzy. You have severe weakness, or unexplained weakness or fatigue. Your heart begins to beat quickly, or it feels like it is skipping beats. These symptoms may represent a serious problem that is an emergency. Do not wait to see if the symptoms will go away. Get medical help right away. Call your local emergency services (911 in the [place] Do not drive yourself to the hospital. Summary Chest pain can be caused by a condition that is serious and requires urgent treatment. It may also be caused by something that is not life-threatening. Your health care provider may do lab tests and other studies to find the cause of your pain. Follow your health care provider's instructions on taking medicines, making lifestyle changes, and getting emergency treatment if symptoms become worse. Keep all follow-up visits as told by your health care provider. This includes visits for any further testing if your chest pain does not go away. This information is not intended to replace advice given to you by your health care provider. Make sure you discuss any questions you have with your health care provider. Document Revised: 05/17/2021 Document Reviewed: 05/17/2021 [employer] Patient Education 2022 [employer]. Follow Up Care 10/24/2023 11:30:41 With:JESSIE MOREIRA Address: [address] [place] [phone] Business (1) When:10/27/2023 13:51:31 [facility] Clinical Note 10-24-2023 Note Date & Type Note Facility 10-24-2023 Note ED Patient Education Note Infectious Disease COVID-19 COVID-19, or coronavirus disease 2019, is an infection that is caused by a new (novel) coronavirus called SARS-CoV-2. COVID-19 can cause many symptoms. In some people, the virus may not cause any symptoms. In others, it may cause mild or severe symptoms. Some people with severe infection develop severe disease. What are the causes? This illness is caused by a virus. The virus may be in the air as tiny specks of fluid (aerosols) or droplets, or it may be on surfaces. You may catch the virus by: ? Breathing in droplets from an infected person. Droplets can be spread by a person breathing, speaking, singing, coughing, or sneezing. ? Touching something, like a table or a doorknob, that has virus on it (is contaminated) and then touching your mouth, nose, or eyes. What increases the risk? Risk for infection: You are more likely to get infected with the COVID-19 virus if: ? You are within 6 ft (1.8 m) of a person with COVID-19 for 15 minutes or longer. ? You are providing care for a person who is infected with COVID-19. ? You are in close personal contact with other people. Close personal contact includes hugging, kissing, or sharing eating or drinking utensils. Risk for serious illness caused by COVID-19: You are more likely to get seriously ill from the COVID-19 virus if: ? You have cancer. ? You have a long-term (chronic) disease, such as: ? Chronic lung disease. This includes pulmonary embolism, chronic obstructive pulmonary disease, and cystic fibrosis. ? Long-term disease that lowers your body's ability to fight infection (immunocompromise). ? Serious cardiac conditions, such as heart failure, coronary artery disease, or cardiomyopathy. ? Diabetes. ? Chronic kidney disease. ? Liver diseases. These include cirrhosis, nonalcoholic fatty liver disease, alcoholic liver disease, or autoimmune hepatitis. ? You have obesity. ? You are or were recently . ? You have sickle cell disease. What are the signs or symptoms? Symptoms of this condition can range from mild to severe. Symptoms may appear any time from 2 to 14 days after being exposed to the virus. They include: ? Fever or chills. ? Shortness of breath or trouble breathing. ? Feeling tired or very tired. ? Headaches, body aches, or muscle aches. ? Runny or stuffy nose, sneezing, coughing, or sore throat. ? New loss of taste or smell. This is rare. Some people may also have stomach problems, such as nausea, vomiting, or diarrhea. Other people may not have any symptoms of COVID-19. How is this diagnosed? This condition may be diagnosed by testing samples to check for the COVID-19 virus. The most common tests are the PCR test and the antigen test. Tests may be done in the lab or at home. They include: ? Using a swab to take a sample of fluid from the back of your nose and throat (nasopharyngeal fluid), from your nose, or from your throat. ? Testing a sample of saliva from your mouth. ? Testing a sample of coughed-up mucus from your lungs (sputum). How is this treated? Treatment for COVID-19 infection depends on the severity of the condition. ? Mild symptoms can be managed at home with rest, fluids, and emud-fhz-swmzsui medicines. ? Serious symptoms may be treated in a hospital intensive care unit (ICU). Treatment in the ICU may include: ? Supplemental oxygen. Extra oxygen is given through a tube in the nose, a face mask, or a jensen. ? Medicines. These may include: ? Antivirals, such as monoclonal antibodies. These help your body fight off certain viruses that can cause disease. ? Anti-inflammatories, such as corticosteroids. These reduce inflammation and suppress the immune system. ? Antithrombotics. These prevent or treat blood clots, if they develop. ? Convalescent plasma. This helps boost your immune system, if you have an underlying immunosuppressive condition or are getting immunosuppressive treatments. ? Prone positioning. This means you will lie on your stomach. This helps oxygen to get into your lungs. ? Infection control measures. If you are at risk for more serious illness caused by COVID-19, your health care provider may prescribe two long-acting monoclonal antibodies, given together every 6 months. How is this prevented? To protect yourself: ? Use preventive medicine (pre-exposure prophylaxis). You may get pre-exposure prophylaxis if you have moderate or severe immunocompromise. ? Get vaccinated. Anyone 6 months old or older who meets guidelines can get a COVID-19 vaccine or vaccine series. This includes people who are or making breast milk (lactating). ? Get an added dose of COVID-19 vaccine after your first vaccine or vaccine series if you have moderate to severe immunocompromise. This applies if you have had a solid organ transplant or have been diagnosed with an immunocompromisin (more content not included)... [facility] Evaluation + Plan note 10-24-2023 Note Date & Type Note Facility 10-24-2023 Evaluation + Plan note Extrac cristal from: Title:ED Note Author:Chad Redd PA-C te:10/24/23 Chest pain (R07.9: Chest edwardo n, unspecified) Ordered: acetaminophen-oxycodone, 1 tab(s), Oral, q6hr as needed for pain for 3 day(s), 12 tab(s), Refill(s) 0, [id number], 167, cm, 10/24/23 11:35:00 EDT, Height/Length Dosing, 42.2, kg, 10/24/23 11:35:00 EDT, Weight Dosing COVID-19 (U07.1: COVID-19) Orders: Basic Metabolic Panel CBC w/ Auto Diff eGFR Troponin 0 Hr. XR Chest Single View [facility] Hospital course Narrative Note Date & Type Note Facility Hospital course Narrative No data available for this section [facility] Progress note Note Date & Type Note Facility Progress note No data available for this section [facility] Summary Purpose Family History No Family History Records Found No data available for this section No Family History Records FoundNo Family History Records FoundNo Family History Records FoundNo Family History Records FoundNo Family History Records Found Advance Directives No Advanced Directives Records FoundNo Advanced Directives Records FoundNo Advanced Directives Records FoundNo Advanced Directives Records FoundNo Advanced Directives Records FoundNo Advanced Directives Records Found Additional Source Comments INFORMATION SOURCE (unrecogn ized section and content) DATE CREATED AUTHOR 02/10/2021 [facility] DATE CREATED AUTHOR AUTHOR'S ORGANIZ ATION 10/27/2023 [facility] DATE CREATED AUTHOR AUTHOR'S ORGANIZ ATION 10/30/2023 [facility] Patient Care team informatio n (unrecognized section and content) Personnel Name: ADELA MOREIRAIA Address: Address: [address] [place] [phone] FOR RECORDS PERTAINING TO PATIENTS WHO ARE [...] BE BASED ON THE PRIMARY CLINICAL RECORDS. [facility] [employer] [facility]. provides no warranty or guarantee of the accuracy or completeness of information in this document.
--- NOTE | 2024-03-06 06:12 | XR_ITS ---
The [address] [address] Patient Name: JUDE HUMPHREY MRN: [id number] date: 1975 Sex: F Assigned Patient Location: ER Current Patient Location: ER Accession/Order Number: [id number] Exam Date: 03/06/2024 06:54 Report Date: 03/06/2024 07:08 At the request of: JACKIE PARDO Procedure: XR shoulder LT min 2V PROCEDURE: XR shoulder LT min 2V HISTORY: Atraumatic pain COMPARISON: None. FINDINGS: BONES:No fracture, acute abnormality, or significant arthropathy. SOFT TISSUES:No visible soft tissue swelling. EFFUSION:None visible. OTHER: Negative. XR/XR shoulder LT min 2V IMPRESSION: 1. No acute bone abnormality or significant degenerative joint disease. Electronically authenticated by: KANG ROME Date: 03/06/2024 07:08
--- NOTE | 2024-03-06 06:14 | ED.GENADUL1 ---
HPI HPI - General Adult General Chief complaint: Back Pain/Injury Stated complaint: back pain Time Seen by Provider: 03/06/24 06:08 Source: patient Mode of arrival: walk-in Limitations: no limitations History of Present Illness HPI narrative: 48-year-old female presents for left posterior shoulder pain. It began yesterday gradually at work. 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 She does this repetitively and it developed slowly. Hurts more to move it and she points to the lower posterior scapular region to indicate area of pain. No shortness of breath or chest pain or pain on the right side. Movement makes it worse. Related Data Home Medications ?Medication ?Instructions ?Recorded ?Confirmed estradiol 0.5 mg tablet mg 02/09/23 hydroxyzine HCl 25 mg tablet 25 mg PO DAILY 02/09/23 03/06/24 quetiapine 50 mg tablet mg 02/09/23 ibuprofen 200 mg tablet (Addaprin) 400 mg PO Q8H 03/06/24 03/06/24 Previous Rx's ?Medication ?Instructions ?Recorded ketorolac 10 mg tablet 10 mg PO Q8H PRN pain #14 tabs 02/09/23 Allergies Allergy/AdvReac Type Severity Reaction Status Date / Time naproxen Allergy Hives Verified 03/06/24 06:06 Opioid HPI Opioid Management Most Recent Opioid Data: Last Pain Scale 10 03/06/24 06:40 03/06/24 Last ED Pain Assessment 03/06/24 06:12 Last MAR Pain Assessment 03/06/24 06:40 Review of Systems ROS Narrative A ten point review of systems is negative except as noted above. PFSH [facility] Medical History (Updated 03/06/24 @ 06:42 by Adal Curry MD) Ovarian cyst ?N83.209 - Unspecified ovarian cyst, unspecified side (ICD-10) Surgical History (Updated 03/06/24 @ 06:08 by Martina Cagle) H/O: hysterectomy ?Z90.710 - Acquired absence of both cervix and uterus (ICD-10) Social History Smoking status: Current every day smoker Little interest or pleasure in doing things: not at all Feeling down, depressed, or hopeless: not at all Exam Narrative Exam Narrative: Nurses note and vital signs reviewed and patient is not hypoxic. General: The patient appears in no apparent distress. Patient appears uncomfortable. Skin: Warm, dry, no pallor noted. There is no rash noted. Head: Normocephalic, atraumatic Eye: Normal conjunctiva, no drainage Ears, Nose, Mouth, and Throat: oral mucosa is moist. Nares patent. Cardiovascular: Regular Rate and Rhythm Respiratory: Patient is in no distress, no accessory muscle use, lungs are clear to auscultation, no wheezing, rales or rhonchi Back: No bruise or rash or crepitus on her back. GI: Soft and nontender Musculoskeletal: She is reluctant to move her left shoulder. There is no deformity bruise or rash. Neurological: A&O, normal speech Psychiatric: Cooperative Constitutional Vital Signs, click to edit/add: Last Vital Signs Temp 97.8 F 03/06/24 06:00 Pulse 67 03/06/24 06:00 Resp 16 03/06/24 06:00 BP 154/78 H 03/06/24 06:00 Pulse Ox 100 03/06/24 06:00 O2 Del Method Room Air 03/06/24 06:00 Course Vital Signs Vital signs: Vital Signs Temperature 97.8 F 03/06/24 06:00 Pulse Rate 67 03/06/24 06:00 Respiratory Rate 16 03/06/24 06:00 Blood Pressure 154/78 H 03/06/24 06:00 Pulse Oximetry 100 03/06/24 06:00 Oxygen Delivery Method Room Air 03/06/24 06:00 Temperature 97.8 F 03/06/24 06:00 Pulse Rate 67 03/06/24 06:00 Respiratory Rate 16 03/06/24 06:00 Blood Pressure 154/78 H 03/06/24 06:00 Pulse Oximetry 100 03/06/24 06:00 Oxygen Delivery Method Room Air 03/06/24 06:00 Medical Decision Making MDM Narrative Medical decision making narrative: The patient was ordered IM Toradol and Norflex and an x-ray was ordered as well. This is pending and the patient is signed out to Dr. Stokes at change of shift. Discharge Plan Discharge Patient Disposition: Still a Patient
[2024-03-06] MEDS: KETOROLAC TROMETHAMINE 60 MG/2 ML VIAL IM (06:40)
[2024-03-06] MEDS: ORPHENADRINE 60 MG/ 2 ML VIAL IM (06:41)
[2024-03-06 07:02] VITALS: BP 135/72; PULSE 68; O2SAT 100
== END 2024-03-06 07:50 | disposition home or self-care (01) ==
PROVIDERS: Emergency Provider Emergency Medicine; PCP Nurse Practitioner Family
DX: M25.512 Pain in left shoulder (principal); Z90.710 Acquired absence of both cervix and uterus; F17.200 Nicotine dependence, unspecified, uncomplicated
CPT/HCPCS: 73030; 96372; 99284; J1885; J2360

== ENCOUNTER 2025-02-28 09:41 | Emergency (ER) | payer OTHER, SELFPAY ==
[2025-02-28 09:48] VITALS: BP 120/72; PULSE 61; TEMP 36.7; O2SAT 100; BMI 15.8
--- NOTE | 2025-02-28 10:06 | ED_ITS ---
HPI HPI - Back Pain/Injury General Chief Complaint: Back Pain/Injury Stated Complaint: BACK PAIN Time Seen by Provider: 02/28/25 10:00 Source: patient Mode of arrival: walk-in History of Present Illness HPI Narrative: The patient presented to the ER with 2 days history of back pain mostly in the lower back not radiating down to her lower extremity, mentioned that the pain started Friday morning when she woke up from sleep, the patient mentioned that she did not have any fall or trauma and she thinks that the pain is there because she slept wrong It just more when she is trying to walk around and she does a lot of walking at work No incontinence of urine or stool no numbness no tingling down to her lower extremities no weakness Related Data Previous Rx's ?Medication ?Instructions ?Recorded diclofenac sodium 75 mg 75 mg PO BID PRN pain #20 ta bs 02/28/25 tablet,delayed release orphenadrine citrate 100 mg 100 mg PO BID PRN muscle s pasm #20 02/28/25 tablet,extended release tabs Allergies Allergy/AdvReac Type Severity Reaction Status Date / Time naproxen Allergy Hives Verified 02/28/25 09:48 Opioid HPI Opioid Management Most Recent Opioid Data: Last Pain Scale 8 Today, 10:12 Last MAR Pain Assessment Today, 10:12 Review of Systems ROS Status of ROS 10 or more systems reviewed and unremark able except as noted in history and below [facility] Medical History (Updated 02/28/25 @ 10:07 by Kamille Stokes MD) Ovarian cyst ?N83.209 - Unspecified ovarian cyst, unspecified side (ICD-10) Surgical History (Updated 03/06/24 @ 06:08 by Martina Cagle) H/O: hysterectomy ?Z90.710 - Acquired absence of both cervix and uterus (ICD-10) Social History Smoking status: Current every day smoker Little interest or pleasure in doing things: not at all Feeling down, depressed, or hopeless: not at all Exam Narrative Exam Narrative: Nurses notes and vital signs reviewed and patient is not hypoxic. General: Well-appearing and in no apparent distress. Skin: Warm, dry, no pallor noted. No rash. Head: Normocephalic, atraumatic. Heart examination: Regular heart rate no murmur Lung exam: Normal lung exam there is good air entry bilaterally there is no distress Back: No midline thoracic or lumbar vertebral tenderness. No CVA tenderness and there is mild paraspinal muscle tenderness at the mid lumbar level Musculoskeletal: normal ROM, no calf or popliteal tenderness, no lower extremity edema/swelling GI: Abdomen is soft, non-distended. Normal bowel sounds. No masses appreciated. No tenderness to palpation. No rebound, guarding, or rigidity noted. Neurological: A&O x4. No cranial nerve dysfunction observed. No truncal ataxia. Moves all extremities. Sensation intact. Psychiatric: Cooperative and interactive. Normal mood and affect. Constitutional Vital Signs, click to edit/add: Last Vital Signs Temp 98.0 F 02/28/25 09:48 Pulse 61 02/28/25 09:48 Resp 16 02/28/25 09:48 BP 120/72 02/28/25 09:48 Pulse Ox 100 02/28/25 09:48 O2 Del Method Room Air 02/28/25 09:48 Course Vital Signs Vital signs: Vital Signs Temperature 98.0 F 02/28/25 09:48 Pulse Rate 61 02/28/25 09:48 Respiratory Rate 16 02/28/25 09:48 Blood Pressure 120/72 02/28/25 09:48 Pulse Oximetry 100 02/28/25 09:48 Oxygen Delivery Method Room Air 02/28/25 09:48 Temperature 98.0 F 02/28/25 09:48 Pulse Rate 61 02/28/25 09:48 Respiratory Rate 16 02/28/25 09:48 Blood Pressure 120/72 02/28/25 09:48 Pulse Oximetry 100 02/28/25 09:48 Oxygen Delivery Method Room Air 02/28/25 09:48 MDM - Back Pain/Injury MDM Narrative Medical decision making narrative: Patient presenting to us with lower back pain and muscle spasm Pain is associated mostly with movement and especially when she is straining, no alarming symptoms associated with the back pain Patient was started on Toradol discharged home with Voltaren and Norflex with instruction to hydrate well and monitor the symptoms Also to rest for the next 2 days The patient to follow-up with the primary care within 2 to 3 days and to come back to the ER in case of any worsening of the current symptoms or any new symptoms or concerns Discharge Plan Discharge Chief Complaint: Back Pain/Injury Clinical Impression: Back sprain Patient Disposition: Home, Self-Care Time of Disposition Decision: 10:07 Condition: Good Prescriptions / Home Meds: New diclofenac sodium 75 mg tablet,delayed release (DR/EC) 75 mg PO BID PRN (Reason: pain) Qty: 20 0RF orphenadrine citrate 100 mg tablet extended release 100 mg PO BID PRN (Reason: muscle spasm) Qty: 20 0RF Print Language: Cymro Instructions: Back Pain (ED) Referrals: TERI HERNANDEZ [Primary Care Provider, Family Practice] - 1 week Discharge Date/Time: 02/28/25 10:20
[2025-02-28] MEDS: KETOROLAC TROMETHAMINE 30 MG/ML VIAL IM (10:12)
== END 2025-02-28 10:20 | disposition home or self-care (01) ==
PROVIDERS: Emergency Provider Emergency Medicine; PCP Nurse Practitioner Family
DX: S33.5XXA Sprain of ligaments of lumbar spine, initial encounter (principal); X58.XXXA Exposure to other specified factors, initial encounter; F17.200 Nicotine dependence, unspecified, uncomplicated
CPT/HCPCS: 96372; 99284; J1885